=== PATIENT | male | born 1955 | race Caucasian/White ===

== ENCOUNTER 2017-09-08 12:47 | Emergency (ER) | payer OTHER, SELFPAY ==
[2017-09-08 13:02] VITALS: BP 142/75; PULSE 88; RESP 15; TEMP 36.6; O2SAT 96; BMI 24.4
--- NOTE | 2017-09-08 13:52 | DI.RAD.S_ITS ---
PROCEDURE: XR CHEST 1V INDICATIONS: chest pain TECHNIQUE: One view of the chest was acquired. COMPARISON: [facility], , CHEST 2 VIEW, 10/20/2015, 17:41. FINDINGS: Surgical changes and devices: None. Lungs and pleura: No pleural effusions or pneumothorax. Lungs are clear. Mediastinum: Mediastinal contours appear normal. Heart size is normal. Bones and chest wall: No suspicious bony lesions. Overlying soft tissues appear unremarkable. IMPRESSION: No acute pulmonary process. Dictated by: Beth Obando M.D. on 09/08/2017 at 14:55 Approved by: Beth Obando M.D. on 09/08/2017 at 14:55
[2017-09-08 14:02] VITALS: BP 123/76; PULSE 72; RESP 16; O2SAT 96
[2017-09-08 14:06] LABS: Add Manual Diff / Slide Review NO; Basophils Percent Auto 0.4 % (0-2); Eosinophils Percent Auto 2.3 % (2-4); Hematocrit 46.7 % (41-53); Hemoglobin 16.8 g/dL (13.5-17.5); Lymphocytes Percent Auto 31.7 % (25-40); Mean Corpuscular HGB Conc 35.9 % (30-36); Mean Corpuscular Hemoglobin 32.6 PG (26-34); Mean Corpuscular Volume 90.8 fL (80-100); Monocytes Percent Auto 11.5 % (3-14); Neutrophils Absolute Auto 2900 /uL (3000-5900); Neutrophils Percent Auto 54.1 % (50-75); Platelet Count 216 X10^3/uL (150-400); Red Blood Cell Count 5.15 X10^6/uL (4.5-5.9); Red Cell Distribution Width 12.8 % (11.6-14.8); White Blood Cell Count 5.4 X10^3/uL (4.5-11.0)
[2017-09-08 14:15] LABS: Alanine Aminotransferase 33 IU/L (21-72); Albumin 4.3 g/dL (3.5-5.0); Albumin Globulin Ratio 1.5 (1.0-2.8); Alkaline Phosphatase 58 U/L (38-126); Aspartate Aminotransferase 21 IU/L (17-59); BUN Creatinine Ratio 16.7 (6-22); Bilirubin Total 1.1 mg/dL (0.2-1.3); Blood Urea Nitrogen 15 mg/dL (9-20); Calcium 9.4 mg/dL (8.4-10.2); Carbon Dioxide 27 mmol/L (22-32); Chloride 102 mmol/L (98-107); Creatine Kinase 70 U/L (55-170); Estimated Glomerular Filt Rate > 60.0 mL/min (>60); Globulin 2.9 g/dL (1.7-4.1); Glucose 102 mg/dL (80-110); HEMOLYSIS < 15 (0-50); INR 1.1 (0.9-1.3); Lipase 75 U/L (23-300); Prothrombin Time 11.9 SECONDS (10.1-12.7); Sodium 140 mmol/L (137-145); Total Protein 7.2 g/dL (6.3-8.2)
[2017-09-08 14:18] LABS: PTT Partial Thromboplastin Tim 32 SECONDS (26.4-36.2)
[2017-09-08 14:27] LABS: Troponin I < 0.012 ng/mL (0.01-0.034)
--- NOTE | 2017-09-08 14:41 | ED_ITS ---
HPI - Chest Pain <Franny Adair PA-C - Last Filed: 09/08/17 21:38> General Chief Complaint: Chest Pain Stated Complaint: STABBING PAIN IN CHEST,LEFT ARM PAIN NAUSEOUS Time Seen by Provider: 09/08/17 14:39 Source: patient Mode of arrival: ambulatory Limitations: no limitations History of Present Illness HPI narrative: This 61-year-old gentleman comes in due to 3 week history of intermittent chest pain which he describes as ?sharp?. He states this has been on and off, however awoke this morning and his left arm has been painful along with the chest pain, so came in due to this. He states that this felt like a squeezing sensation especially in his forearm, and he has felt a little bit foggy in his head though has been going about his usual activities without difficulty. He denies any focal weakness, denies any difficulty with speech or swallowing. His has not noted any change. He states historically, this chest pain has happened at rest, no exertional pain. He denies any dyspnea or wheeze. He states he has had a slight ongoing cough. He has not had any fever. He has not had any pain or swelling in his lower extremities. He denies any nausea or vomiting. He states that pain improves with belching. Related Data Previous Rx's Medication Instructions Recorded celecoxib [Celebrex] 100 mg PO BID #180 cap 05/11/17 gabapentin [Neurontin] 300 mg PO HS #90 cap 05/11/17 lisinopril 10 mg PO Q DAY #90 tab 05/11/17 simvastatin 20 mg PO HS #90 tab 05/11/17 Allergies Allergy/AdvReac Type Severity Reaction Status Date / Time aspirin [ASPIRIN] Allergy Unknown Verified 09/08/17 13:02 Review of Systems <Franny Adair PA-C - Last Filed: 09/08/17 21:38> Review of Systems All systems reviewed & are unremarkable except as noted in HPI and below PFSH <Franny Adair PA-C - Last Filed: 09/08/17 21:38> Comment: Smokes cigars and chews tobacco, no ETOH or street drug Exam <Franny Adair PA-C - Last Filed: 09/08/17 21:38> Narrative Exam Narrative: GENERAL APPEARANCE: Patient sitting comfortably, in no distress. HEENT: PERRLA, EOMI, NORMAL OROPHARYNX NECK/THYROID: Neck supple, no JVD. LUNGS: Clear to auscultation bilaterally. HEART: Regular rate and rhythm without murmur, normal S1, S2, no S3 or S4. CHEST: He is exquisitely tender over the left anterolateral rib border at the 3rd to 5th rib levels. No sternal tenderness or rib tenderness elsewhere ABDOMEN: Soft, NT, ND, + BS x 4 quadrants, +bowel sounds x4 quadrants EXTREMITIES: No cyanosis, no edema. No calf tenderness NEUROLOGIC: Alert and oriented, normal speech and coordination. DERMATOLOGIC: No exanthem MS: Moderate tenderness over the left AC joint. No tenderness over the left forearm. He is tender with attempts at full external and internal rotation of the shoulder with somewhat decreased range of motion. Initial Vital Signs Initial Vital Signs: Vital Signs Temperature 97.8 F 09/08/17 13:02 Pulse Rate 88 09/08/17 13:02 Respiratory Rate 15 09/08/17 13:02 Blood Pressure 142/75 H 09/08/17 13:02 Pulse Oximetry 96 09/08/17 13:02 <Adilson Richardson MD - Last Filed: 09/10/17 08:37> Initial Vital Signs Initial Vital Signs: Vital Signs Temperature 97.8 F 09/08/17 13:02 Pulse Rate 88 09/08/17 13:02 Respiratory Rate 15 09/08/17 13:02 Blood Pressure 142/75 H 09/08/17 13:02 Pulse Oximetry 96 09/08/17 13:02 Course <Franny Adair PA-C - Last Filed: 09/08/17 21:38> Additional Information: Patient was symptomatic while here and has essentially normal workup. We were able to elicit tenderness on palpation, and discussed that this may be associated with pectoral and rib muscle strain as well as the tenderness and movement difficulties he is having with the left shoulder. He did also have improvement in his belching with the GI cocktail. He is already on NSAID for arthritis and will continue this. Advised this appears to be low risk chest pain at this point and it is reasonable to discharge home however advised return if any new or acutely worsening symptoms and he is agreeable. Also advised follow up with his PCP to talk about whether stress testing may be indicated given his risk factors. Orders Ordered: Discontinued Medications Al Hydrox/Mg Hydrox/Simethicone 20 ml/ Lidocaine HCl 15 ml 0 ml PO NOW ONE Stop: 09/08/17 15:12 Last Admin: 09/08/17 15:19 Dose: 30 ml Lidocaine (Lidoderm) 1 each TOP NOW ONE Stop: 09/08/17 15:12 Last Admin: 09/08/17 15:17 Dose: 1 each Vital Signs - 8 hr 09/08/17 14:02 09/08/17 15:04 Pulse Rate 72 72 Respiratory Rate 16 24 Blood Pressure [Right Arm] 123/76 H 107/72 Pulse Oximetry 96 98 <Adilson Richardson MD - Last Filed: 09/10/17 08:37> Orders Ordered: Discontinued Medications Al Hydrox/Mg Hydrox/Simethicone 20 ml/ Lidocaine HCl 15 ml 0 ml PO NOW ONE Stop: 09/08/17 15:12 Last Admin: 09/08/17 15:19 Dose: 30 ml Lidocaine (Lidoderm) 1 each TOP NOW ONE Stop: 09/08/17 15:12 Last Admin: 09/08/17 15:17 Dose: 1 each Vital Signs - 8 hr 09/08/17 14:02 09/08/17 15:04 Pulse Rate 72 72 Respiratory Rate 16 24 Blood Pressure [Right Arm] 123/76 H 107/72 Pulse Oximetry 96 98 MDM - Chest Pain <Franny Adair PA-C - Last Filed: 09/08/17 21:38> Lab Data Attestation: I reviewed the patient's lab results. Result diagrams: 09/08/17 13:55 09/08/17 13:55 Lab Results 09/08/17 09/08/17 09/08/17 Range/Units 13:55 13:55 13:55 WBC 5.4 (4.5-11.0) X10^3/uL RBC 5.15 (4.5-5.9) X10^6/uL Hgb 16.8 (13.5-17.5) g/dL Hct 46.7 (41-53) % MCV 90.8 (80-100) fL MCH 32.6 (26-34) PG MCHC 35.9 (30-36) % RDW 12.8 (11.6-14.8) % Plt Count 216 (150-400) X10^3/uL Neut % (Auto) 54.1 (50-75) % Lymph % (Auto) 31.7 (25-40) % [place] % (Auto) 11.5 (3-14) % Eos % (Auto) 2.3 (2-4) % Baso % (Auto) 0.4 (0-2) % Neut # (Auto) 2900 L (1405-3666) /uL PT 11.9 (10.1-12.7) SECONDS INR 1.1 (0.9-1.3) APTT 32 (26.4-36.2) SECONDS Sodium 140 (137-145) mmol/L Potassium 4.0 (3.4-5.1) mmol/L Chloride 102 (98-107) mmol/L Carbon Dioxide 27 (22-32) mmol/L BUN 15 (9-20) mg/dL Creatinine 0.90 (0.66-1.25) mg/dL Estimated GFR > 60.0 (>60) mL/min BUN/Creatinine Ratio 16.7 (6-22) Glucose 102 (80-110) mg/dL Calcium 9.4 (8.4-10.2) mg/dL Total Bilirubin 1.1 (0.2-1.3) mg/dL AST 21 (17-59) IU/L ALT 33 (21-72) IU/L Alkaline Phosphatase 58 (38-126) U/L Total Creatine Kinase 70 (55-170) U/L Troponin I < 0.012 (0.01-0.034) ng/mL Total Protein 7.2 (6.3-8.2) g/dL Albumin 4.3 (3.5-5.0) g/dL Globulin 2.9 (1.7-4.1) g/dL Albumin/Globulin Ratio 1.5 (1.0-2.8) Lipase 75 (23-300) U/L Imaging Data Chest x-ray: Radiologist's impression: [address] [address] XRay Report Signed Patient: Oscar Maloney MR#: [id number] : 1955 Acct:[id number] Age/Sex: 61 / M Date of Service: 09/08/17 Loc: ED Accession Number: [id number] Procedure: XR chest 1V Ordering Provider: Adilson Richardson M.D. PROCEDURE: XR CHEST 1V INDICATIONS: chest pain TECHNIQUE: One view of the chest was acquired. COMPARISON: [facility], CHEST 2 VIEW, 10/20/2015, 17:41. FINDINGS: Surgical changes and devices: None. Lungs and pleura: No pleural effusions or pneumothorax. Lungs are clear. Mediastinum: Mediastinal contours appear normal. Heart size is normal. Bones and chest wall: No suspicious bony lesions. Overlying soft tissues appear unremarkable. IMPRESSION: No acute pulmonary process. Dictated by: Beth Obando M.D. on 09/08/2017 at 14:55 Approved by: Beth Obando M.D. on 09/08/2017 at 14:55 ECG Data Attestation: I personally reviewed and interpreted this ECG as follows: (Sinus rhythm with rate 77, normal axis) Core Measures AMI core measures followed: Yes <Adilson Richardson MD - Last Filed: 09/10/17 08:37> Lab Data Lab Results 09/08/17 09/08/17 09/08/17 Range/Units 13:55 13:55 13:55 WBC 5.4 (4.5-11.0) X10^3/uL RBC 5.15 (4.5-5.9) X10^6/uL Hgb 16.8 (13.5-17.5) g/dL Hct 46.7 (41-53) % MCV 90.8 (80-100) fL MCH 32.6 (26-34) PG MCHC 35.9 (30-36) % RDW 12.8 (11.6-14.8) % Plt Count 216 (150-400) X10^3/uL Neut % (Auto) 54.1 (50-75) % Lymph % (Auto) 31.7 (25-40) % [place] % (Auto) 11.5 (3-14) % Eos % (Auto) 2.3 (2-4) % Baso % (Auto) 0.4 (0-2) % Neut # (Auto) 2900 L (7686-6602) /uL PT 11.9 (10.1-12.7) SECONDS INR 1.1 (0.9-1.3) APTT 32 (26.4-36.2) SECONDS Sodium 140 (137-145) mmol/L Potassium 4.0 (3.4-5.1) mmol/L Chloride 102 (98-107) mmol/L Carbon Dioxide 27 (22-32) mmol/L BUN 15 (9-20) mg/dL Creatinine 0.90 (0.66-1.25) mg/dL Estimated GFR > 60.0 (>60) mL/min BUN/Creatinine Ratio 16.7 (6-22) Glucose 102 (80-110) mg/dL Calcium 9.4 (8.4-10.2) mg/dL Total Bilirubin 1.1 (0.2-1.3) mg/dL AST 21 (17-59) IU/L ALT 33 (21-72) IU/L Alkaline Phosphatase 58 (38-126) U/L Total Creatine Kinase 70 (55-170) U/L Troponin I < 0.012 (0.01-0.034) ng/mL Total Protein 7.2 (6.3-8.2) g/dL Albumin 4.3 (3.5-5.0) g/dL Globulin 2.9 (1.7-4.1) g/dL Albumin/Globulin Ratio 1.5 (1.0-2.8) Lipase 75 (23-300) U/L Discharge Plan Departure Patient Disposition: Home, Self-Care Clinical Impression: Atypical chest pain, Anterior shoulder pain Discharge Date/Time: 09/08/17 15:56 Interventions: ED Discharge Assessment Last Done: 09/08/17 15:56 Instructions: DI for Atypical Chest Pain Activity Restrictions/Additional Instructions: As we discussed, you should return if you have any acutely worsening symptoms, or new symptoms such as difficulty breathing. Your testing today did not show any acute findings as far as your heart, and on examination your pain seems more typical of a musculoskeletal problem given the tenderness and muscle pain when I push on your rib area as well as the front part of your shoulder. You can use your usual arthritis medication, add Tylenol as needed. You may also wish to try 4% lmir-kfj-qzhkzte lidocaine patches if you find 1 that we put on your elbow helpful. You may also wish to use a liquid ewya-rlu-rcztfqi antacid for your belching and gas symptoms, or you can try bonv-xlk-aqvbjrs simethicone. Please follow-up with your PCP next week to discuss whether to do further testing since you do have some risk factors for heart disease Prescriptions: No Action simvastatin 20 MG tablet 20 mg PO HS Qty: 90 RF: 1 lisinopril 10 MG tablet 10 mg PO Q DAY Qty: 90 RF: 1 gabapentin [Neurontin] 300 MG capsule 300 mg PO HS Qty: 90 RF: 3 celecoxib [Celebrex] 100 MG capsule 100 mg PO BID Qty: 180 RF: 3 Referrals: Rosamaria Grayson DO [Primary Care Provider] - <Adilson Richardson MD - Last Filed: 09/10/17 08:37> Sign Out Provider Sign Out Attestation: The PA/ACCOUNTING MANAGER CONTROLLER functioned independently for the care of this pt, I was available, but not asked to participate in care. I am unable to determine appropriateness of management without personally examining the pt.
[2017-09-08 15:04] VITALS: BP 107/72; PULSE 72; RESP 24; O2SAT 98
[2017-09-08] MEDS: LIDOCAINE PATCH 1 EACH ADH..PATCH TOP (15:17)
[2017-09-08] MEDS: MAG HYDROX/ALUMINUM/SIMETH SUS 20 ML, LIDOCAINE VISCOUS 2% 15 ML PO (15:19)
== END 2017-09-08 15:56 | disposition home or self-care (01) ==
PROVIDERS: Emergency Medicine; Emergency Provider Internal Medicine; Family Provider Family Medicine; PCP Family Medicine
DX: R07.89 Other chest pain (principal); M25.512 Pain in left shoulder
CPT/HCPCS: 36415; 36591; 71045; 80053; 82550; 82553; 83690; 84484; 85025; 85610; 85730; 93005; 93041; 99283; 99285

== ENCOUNTER → 2017-12-07 12:06 | Outpatient (CLI) | payer OTHER, SELFPAY ==
[2017-12-07 14:05] LABS: Cholesterol 145 mg/dL (140-199); HDL Cholesterol 51 mg/dL (40-60); LDL Cholesterol Calculated 75 mg/dL (<100); Triglycerides 97 mg/dL (35-150)
[2017-12-07 14:34] LABS: Thyroid Stimulating Hormone 1.85 uIU/mL (0.47-4.68)
== END ==
PROVIDERS: Family Provider Family Medicine; PCP Family Medicine; Visit Provider Family Medicine
DX: Z13.220 Encounter for screening for lipoid disorders (principal); Z13.29 Encounter for screening for other suspected endocrine disorder
CPT/HCPCS: 36415; 80061; 84443

== ENCOUNTER → 2018-01-23 17:17 | Outpatient (CLI) | payer OTHER, SELFPAY ==
[2018-01-23 18:10] LABS: Appearance Urine UA CLEAR; Bilirubin Urine UA NEGATIVE (NEGATIVE); Color Urine UA YELLOW; Glucose Urine UA NEGATIVE (Normal); Ketones Urine UA NEGATIVE (NEGATIVE); Leukocyte Esterase Urine UA NEGATIVE (NEGATIVE); Nitrite Urine UA NEGATIVE (Negative); Occult Blood Urine UA NEGATIVE (Negative); Protein Urine UA NEGATIVE (Negative); pH Urine UA 6.5 (4.5-8.0)
[2018-01-23 18:32] LABS: Add Manual Diff / Slide Review NO; Basophils Percent Auto 0.5 % (0-2); Eosinophils Percent Auto 1.9 % (2-4); Hemoglobin 17.2 g/dL (13.5-17.5); Lymphocytes Percent Auto 34.1 % (25-40); Mean Corpuscular HGB Conc 34.3 % (30-36); Mean Corpuscular Hemoglobin 31.1 PG (26-34); Mean Corpuscular Volume 90.6 fL (80-100); Monocytes Percent Auto 8.2 % (3-14); Neutrophils Absolute Auto 3600 /uL (3000-5900); Neutrophils Percent Auto 55.3 % (50-75); Platelet Count 226 X10^3/uL (150-400); Red Blood Cell Count 5.52 X10^6/uL (4.5-5.9); Red Cell Distribution Width 13.1 % (11.6-14.8); White Blood Cell Count 6.5 X10^3/uL (4.5-11.0)
[2018-01-23 18:56] LABS: Alanine Aminotransferase 37 IU/L (21-72); Albumin 4.6 g/dL (3.5-5.0); Albumin Globulin Ratio 1.5 (1.0-2.8); Alkaline Phosphatase 67 U/L (38-126); Amylase 39 U/L (30-110); Aspartate Aminotransferase 22 IU/L (17-59); BUN Creatinine Ratio 14.4 (6-22); Bilirubin Total 0.6 mg/dL (0.2-1.3); Blood Urea Nitrogen 13 mg/dL (9-20); Calcium 9.5 mg/dL (8.4-10.2); Carbon Dioxide 29 mmol/L (22-32); Chloride 102 mmol/L (98-107); Estimated Glomerular Filt Rate > 60.0 mL/min (>60); Glucose 92 mg/dL (80-110); HEMOLYSIS < 15 (0-50); Lipase 83 U/L (23-300); Potassium 4.1 mmol/L (3.4-5.1); Sodium 144 mmol/L (137-145); Total Protein 7.6 g/dL (6.3-8.2)
== END ==
PROVIDERS: Family Provider Family Medicine; PCP Family Medicine; Visit Provider Family Medicine
DX: R10.9 Unspecified abdominal pain (principal)
CPT/HCPCS: 36415; 80053; 81003; 82150; 83690; 85025

== ENCOUNTER → 2018-01-29 12:46 | Outpatient (CLI) | payer OTHER, SELFPAY ==
--- NOTE | 2018-01-29 12:53 | DI.CT.S_ITS ---
PROCEDURE: CT ABDOMEN PELVIS W CON INDICATIONS: left lower quadrant pain TECHNIQUE: After the administration of oral and intravenous contrast, 5 mm thick sections acquired from the diaphragms to the symphysis. 5 mm thick coronal and sagittal reformats were performed. For radiation dose reduction, the following was used: automated exposure control, adjustment of mA and/or kV according to patient size. COMPARISON: [facility], CT, KIDNEY/ URETER/BLADDER, 08/28/2013, 10:17. FINDINGS: Image quality: Excellent. ABDOMEN: Lung bases: Lung bases are clear. Heart size is normal. Solid organs: Liver is normal in size and enhancement. Gallbladder is surgically absent. Biliary system is non-dilated. Pancreas enhances normally. Spleen is normal in size and enhancement. No adrenal nodules. Kidneys are normal in size and enhancement, without hydronephrosis. Peritoneum and bowel: There is mild thickening of the distal esophagus and gastroesophageal junction. Stomach, small bowel, and colon loops are normal in caliber and wall thickness. No free fluid or air. Normal appendix. Nodes and vessels: No retroperitoneal or mesenteric adenopathy. Aorta and inferior vena cava are normal in caliber. Miscellaneous: No ventral hernias. PELVIS: Genitourinary: Bladder wall thickness is normal. Miscellaneous: No inguinal hernias or adenopathy. Bones: No suspicious bony lesions. No vertebral body compression fractures. IMPRESSION: 1. Mild thickening of the distal esophagus; further assessment with endoscopy is recommended to assess for neoplasm. 2. No explanation for left lower quadrant pain. 3. Normal appendix. Dictated by: Ying Hughes M.D. on 01/29/2018 at 16:53 Approved by: Ying Hughes M.D. on 01/29/2018 at 16:55
== END ==
PROVIDERS: PCP Family Medicine; Visit Provider Family Medicine
DX: R10.12 Left upper quadrant pain (principal); R10.30 Lower abdominal pain, unspecified
CPT/HCPCS: 74177; Q9967

== ENCOUNTER → 2018-02-14 15:39 | Outpatient (CLI) | payer OTHER, SELFPAY ==
[2018-02-14 16:18] LABS: Add Manual Diff / Slide Review NO; Basophils Percent Auto 0.4 % (0-2); Eosinophils Percent Auto 1.8 % (2-4); Hematocrit 46.3 % (41-53); Hemoglobin 16.6 g/dL (13.5-17.5); Lymphocytes Percent Auto 37.4 % (25-40); Mean Corpuscular HGB Conc 35.9 % (30-36); Mean Corpuscular Hemoglobin 31.9 PG (26-34); Mean Corpuscular Volume 88.8 fL (80-100); Monocytes Percent Auto 10.3 % (3-14); Neutrophils Absolute Auto 2600 /uL (1500-7000); Neutrophils Percent Auto 50.1 % (50-75); Platelet Count 227 X10^3/uL (150-400); Red Blood Cell Count 5.21 X10^6/uL (4.5-5.9); Red Cell Distribution Width 12.9 % (11.6-14.8); White Blood Cell Count 5.3 X10^3/uL (4.5-11.0)
[2018-02-14 16:20] LABS: Appearance Urine UA CLEAR; Bilirubin Urine UA NEGATIVE (NEGATIVE); Color Urine UA YELLOW; Glucose Urine UA NEGATIVE (Normal); Ketones Urine UA NEGATIVE (NEGATIVE); Leukocyte Esterase Urine UA NEGATIVE (NEGATIVE); Nitrite Urine UA NEGATIVE (Negative); Occult Blood Urine UA NEGATIVE (Negative); Protein Urine UA NEGATIVE (Negative); Specific Gravity Urine UA >=1.030 (1.000-1.035); Urobilinogen Urine UA 0.2 E.U./dL (0.2)
[2018-02-14 16:40] LABS: Alanine Aminotransferase 39 IU/L (21-72); Albumin 4.4 g/dL (3.5-5.0); Albumin Globulin Ratio 1.6 (1.0-2.8); Alkaline Phosphatase 64 U/L (38-126); Aspartate Aminotransferase 25 IU/L (17-59); BUN Creatinine Ratio 17.8 (6-22); Bilirubin Total 0.9 mg/dL (0.2-1.3); Blood Urea Nitrogen 16 mg/dL (9-20); Calcium 9.1 mg/dL (8.4-10.2); Carbon Dioxide 23 mmol/L (22-32); Chloride 104 mmol/L (98-107); Cholesterol 158 mg/dL (140-199); Estimated Glomerular Filt Rate > 60.0 mL/min (>60); Globulin 2.8 g/dL (1.7-4.1); Glucose 99 mg/dL (80-110); HDL Cholesterol 46 mg/dL (40-60); HEMOLYSIS < 15 (0-50); LDL Cholesterol Calculated 98 mg/dL (<100); Potassium 4.1 mmol/L (3.4-5.1); Sodium 141 mmol/L (137-145); Total Protein 7.2 g/dL (6.3-8.2); Triglycerides 68 mg/dL (35-150)
[2018-02-14 17:09] LABS: Thyroid Stimulating Hormone 1.24 uIU/mL (0.47-4.68)
== END ==
PROVIDERS: PCP Family Medicine; Visit Provider Family Medicine
DX: E78.5 Hyperlipidemia, unspecified (principal); I10 Essential (primary) hypertension; Z51.81 Encounter for therapeutic drug level monitoring
CPT/HCPCS: 36415; 80053; 80061; 81003; 84153; 84443; 85025

== ENCOUNTER → 2018-02-18 09:41 | Outpatient (CLI) | payer OTHER, SELFPAY ==
--- NOTE | 2018-02-18 09:43 | DI.CT.S_ITS ---
PROCEDURE: CT CHEST W CON INDICATIONS: Chest pain, Left rib pain TECHNIQUE: After the administration of intravenous contrast, 5 mm thick sections acquired from the pulmonary apices to the posterior costophrenic angles. 7 mm thick coronal and sagittal MIP reformats were acquired. For radiation dose reduction, the following was used: automated exposure control, adjustment of mA and/or kV according to patient size. COMPARISON: None. FINDINGS: Image quality: Excellent. Lungs and pleura: No acute air space opacities. Mild dependent atelectasis in posterior aspect of bilateral lung sanchez are seen. No pleural effusions or pneumothorax. Central and peripheral airways are patent and normal in caliber. Mediastinum: Heart size is normal. No pericardial effusion. No mediastinal or hilar adenopathy by size criteria. Thoracic aorta and central pulmonary arteries are normal in size. Esophagus is normal in caliber. No hiatal hernia. Bones and chest wall: No suspicious bony lesions. No vertebral body compression fractures. No axillary or supraclavicular adenopathy by size criteria. Right thyroid lobe is slightly enlarged compared to the left side. No discrete thyroid nodule is seen. Abdomen: Visualized upper abdominal solid organs appear normal. Upper abdominal bowel loops are normal in caliber. Gallbladder is surgically absent. IMPRESSION: 1. Mild dependent atelectasis in bilateral lung sanchez. Bilateral lungs otherwise clear. 2. No gross acute rib fracture or suspicious rib lesion. 3. No mediastinal or hilar adenopathy. Dictated by: Chriss Daniel M.D. on 02/18/2018 at 12:25 Approved by: Chriss Daniel M.D. on 02/18/2018 at 12:33
== END ==
PROVIDERS: PCP Family Medicine; Visit Provider Family Medicine
DX: R07.9 Chest pain, unspecified (principal); J98.11 Atelectasis
CPT/HCPCS: 71260

== ENCOUNTER → 2018-02-26 12:50 | Outpatient (CLI) | payer OTHER, SELFPAY ==
--- NOTE | 2018-02-26 12:52 | DI.MRI.S_ITS ---
PROCEDURE: MR ABDOMEN WO/W CON INDICATIONS: Mass left upper rectus muscle region of the abdomen TECHNIQUE: Axial 2-D FLASH in- and jit-an-lydel, axial breath-hold T2 FSE, axial STIR FSE. Optional contrast may be given, followed by axial 2-D FLASH with fat saturation acquired over the lesion of concern. COMPARISON: [facility], CT, KIDNEY/ URETER/BLADDER, 08/28/2013, 10:17. [facility], CT, CT CHEST W CON, 02/18/2018, 9:38. [facility], CT, CT ABDOMEN PELVIS W CON, 01/29/2018, 13:32. FINDINGS: Image quality: Excellent. Region of interest: A 1.6 cm in diameter fatty mass is present within the subcutaneous tissues in the area palpated by the patient. No enhancement. There is mild mass effect on the underlying rectus musculature. Visualized portions of the kidneys, spleen, bowel, stomach, and liver are unremarkable. There is a moderate amount of epicardial fat. Bones: Nearby osseous structures demonstrate normal overall marrow signal. IMPRESSION: 1. Small anterior subcutaneous fatty mass palpated by the patient most consistent with a small lipoma. Please note, although liposarcomas exceedingly rare, if there is rapid growth or pain associated with this mass, further characterization may be warranted to exclude neoplasm. Dictated by: Aida Todd M.D. on 02/26/2018 at 16:03 Approved by: Aida Todd M.D. on 02/26/2018 at 16:09
== END ==
PROVIDERS: PCP Family Medicine; Visit Provider Specialist
DX: R19.02 Left upper quadrant abdominal swelling, mass and lump (principal)
CPT/HCPCS: 74183; A9579

== ENCOUNTER → 2018-07-17 15:39 | Outpatient (CLI) | payer OTHER, SELFPAY ==
[2018-07-17 16:31] LABS: Alanine Aminotransferase 27 IU/L (21-72); Albumin 4.2 g/dL (3.5-5.0); Albumin Globulin Ratio 1.6 (1.0-2.8); Alkaline Phosphatase 72 U/L (38-126); Aspartate Aminotransferase 22 IU/L (17-59); BUN Creatinine Ratio 15.6 (6-22); Bilirubin Total 0.9 mg/dL (0.2-1.3); Blood Urea Nitrogen 14 mg/dL (9-20); Calcium 8.9 mg/dL (8.4-10.2); Carbon Dioxide 27 mmol/L (22-32); Chloride 103 mmol/L (98-107); Cholesterol 137 mg/dL (140-199); Estimated Glomerular Filt Rate > 60.0 mL/min (>60); Globulin 2.7 g/dL (1.7-4.1); Glucose 97 mg/dL (80-110); HDL Cholesterol 43 mg/dL (40-60); HEMOLYSIS 17 (0-50); LDL Cholesterol Calculated 76 mg/dL (<100); Potassium 4.1 mmol/L (3.4-5.1); Sodium 140 mmol/L (137-145); Total Protein 6.9 g/dL (6.3-8.2); Triglycerides 88 mg/dL (35-150)
== END ==
PROVIDERS: PCP Family Medicine; Visit Provider Family Medicine
DX: E78.5 Hyperlipidemia, unspecified (principal); I10 Essential (primary) hypertension
CPT/HCPCS: 36415; 80053; 80061

== ENCOUNTER → 2018-08-15 07:39 | Outpatient (CLI) | payer OTHER, SELFPAY ==
--- NOTE | 2018-08-15 07:41 | DI.MRI.S_ITS ---
PROCEDURE: MR LUMBAR SPINE WO CON INDICATIONS: Lumbar Radiculopaty, DDD TECHNIQUE: Noncontrast sagittal T1 spin echo and T2 fast echo, sagittal STIR, axial T1 and T2 fast spin echo through the lumbar spine. In cases with scoliosis, additional coronal T2 fast spin echo may be performed. COMPARISON: [facility], , L-SPINE WITHOUT CONTRAST, 11/10/2014, 19:38. FINDINGS: Image quality: Excellent. Alignment and Curvature: There is trace retrolisthesis of L5 on S1. Bone Marrow: Marrow is of normal overall signal. No acute vertebral body compression fractures. Schmorl's nodes are noted along the inferior endplates of L1, L2, L3, L4 and L5, as well as superior endplates of L4 read, L4. Schmorl's nodes with associated reactive marrow changes noted along the inferior endplate of L2 and superior endplate of L3, as well as to a lesser degree the inferior endplate of L3.. Spinal Cord: Conus medullaris terminates at the L1 level. Visualized cord demonstrates normal signal and size. Paraspinous Soft Tissues: No paravertebral masses. Discs: Moderate to severe desiccation is present throughout the lumbar spine. L1-L2: Minimal disc bulge without spinal stenosis. No foraminal narrowing. Mild facet and ligamentum flavum hypertrophy as well as minimal epidural lipomatosis. Minimal interval progression. L2-L3: Mild disc bulge without spinal stenosis. Moderate right and minimal left foraminal narrowing with facet and ligamentum flavum hypertrophy. Minimal epidural lipomatosis. Minimal interval progression. L3-L4: Mild disc bulge without spinal stenosis. Mild left and mild to moderate right foraminal narrowing with facet and ligamentum flavum hypertrophy. Minimal epidural lipomatosis. No interval change. L4-L5: Mild disc bulge without spinal stenosis. Minimal bilateral foraminal narrowing without interval progression. Facet and ligamentum flavum hypertrophy are noted. Stable interval appearance. L5-S1: Minimal disc bulge without spinal stenosis. No foraminal narrowing. Facet hypertrophy is present. No interval change. IMPRESSION: 1. Multilevel degenerative changes with areas of interval progression as noted above. 2. Multilevel foraminal narrowing most prominent at L2-3 L3-4 secondary to facet/ligamentum flavum arthropathy. 3. No spinal stenosis. Dictated by: Beth Obando M.D. on 08/15/2018 at 11:54 Approved by: Beth Obando M.D. on 08/15/2018 at 12:04
== END ==
PROVIDERS: PCP Family Medicine; Referring Provider Physical Medicine & Rehabilitation; Visit Provider Family Medicine
DX: M51.16 Intervertebral disc disorders with radiculopathy, lumbar region (principal); M47.26 Other spondylosis with radiculopathy, lumbar region; M48.061 Spinal stenosis, lumbar region without neurogenic claudication
CPT/HCPCS: 72148

== ENCOUNTER 2018-09-10 07:08 | Outpatient (CLI) | payer OTHER, SELFPAY ==
[2018-09-10] VITALS (8 sets, daily range): BP systolic 115–145; BP diastolic 58–83; PULSE 63–70; RESP 16–20; TEMP 36.5; O2SAT 95–98
--- NOTE | 2018-09-10 07:10 | DI.RAD.S_ITS ---
PROCEDURE: PAIN L/S TRANSFORAMINAL INJECT INDICATIONS: SPONDYLOSIS FINDINGS: Fluoroscopic spot filming was performed to verify placement of spinal needles at the L3-L4. level(s), as labeled on the films. Appropriate location(s) of the needle tip(s) was confirmed by injection of iodinated contrast. IMPRESSION: Fluoroscopy support for pain management. Dictated by: Abbey Santos M.D. on 09/10/2018 at 10:35 Approved by: Abbey Santos M.D. on 09/10/2018 at 10:36
[2018-09-10] MEDS: fentaNYL 100 MCG/2 ML INJ 50 MCG IV (08:03)
[2018-09-10] MEDS: MIDAZOLAM 5 MG/5 ML VIAL IV (08:03)
[2018-09-10] MEDS: DEXAMETHASONE 10 MG/ML VIAL 20 MG INJ (08:08)
[2018-09-10] MEDS: BETAMETHASONE 30 MG/5 ML MDV 6 MG INJ (08:08)
[2018-09-10] MEDS: IOPAMIDOL 15 ML VIAL 3 ML INJ (08:08)
[2018-09-10] MEDS: BUPIVACAINE 0.25% (PF) VIAL 2 ML INJ (08:08)
--- NOTE | 2018-09-10 08:12 | PC.NURSE ---
ASSISTING PT OFF TABLE AND TRANSPORTING TO POST PROC AREA IN STABLE CONDITION.
--- NOTE | 2018-09-10 08:20 | P.PCN_ITS ---
Procedures Date/Time Date of procedure: 09/10/18 Time of procedure: 08:18 General Procedure description: PREOP DIAGNOSIS 1. FORMAINAL STENOSIS WITH LE SYMPTOMS POST OP DIAGNOSIS 1. FORMAINAL STENOSIS WITH LE SYMPTOMS PROCEDURES 1. FLUOROSCOPICALLY GUIDED CONTRAST CONTROLLED TRANSFORAMINAL EPIDURAL STEROID INJECTION - LEFT L3/4 PHYSICIAN: Sang Corral DO INDICATIONS: Oscar is referred by Dr. Grayson for treatment of Foraminal Stenosis with Left LE Symptoms FINDINGS Foraminal Nerve Root Compression secondary to disc disease and facet hypertrophy DESCRIPTION OF PROCEDURE: Following review of allergy and review of potential side effects and complications, including, but not necessarily limited to, infection, allergic reaction, local tissue breakdown, stroke, temporary or permanent nerve injury, paralysis, and possible , the patient indicated that the patient understood and agreed to proceed. An informed consent document was signed by the patient, witnessed by a nurse, and placed in the patient's chart. Additionally, other treatment options including medications, modalities, and physical therapy were reviewed with the patient. After review of previous anaesthesic history and IV conscious sedation the pa tient was deemed safe to proceed with todays procedure with IV conscious sedation as ASA class II designation. Safety time-out was performed to confirm patient ID, procedure to be performed and site of procedure. IV sedation was accomplished with a combination of 2mg of Versed and 50mcg of Fentanyl administered by the RN after DO order, titrated to patient comfort during the course of the procedure while the patient remained responsive to all verbal commands In the prone position following sterile prep and drape of the lumbar region, the left L4/5 posterior neuroforamen was identified fluoroscopically. The skin was anesthetized via a 25-gauge 1.5-inch needle with 1% lidocaine solution. At this point, a 25-gauge 3.5-inch spinal needle was atraumatically introduced and advanced under fluoroscopic guidance through the posterior left L4/5 neuroforamen to approximately the anterior aspect of the canal. Depth was confirmed on lateral view. Following negative aspiration, injection of a pproximately 1.5 cc of Isovue 200 under live fluoroscopy in the AP view confirmed excellent flow along the nerve root, into the epidural space without vascular or intrathecal uptake observed Radiological data, including multiple fluoroscopic views of the lumbosacral spine, reveal a spinal needle at the left L4/5 posterior neuroforamen. Subsequent views show flow of contrast material flowing superiorly and inferiorly along the nerve root confirming epidural flow. Subsequently, a test dose of 1.5 cc of 1% lidocaine solution was administered and patient was observed for two minutes for signs or symptoms of complications, including abdominal pain, shortness of breath, bilateral upper or lower extremity weakness, nausea and vomiting, prior to steroid injection. At this point, a total of 3cc or 20mg of dexamethasone and 50mcg of Fentanyl was injected without incident. The procedure tolerated the procedure well without signs or symptoms of complications prior to transfer to the recovery area continued monitoring without incident. The patient was then transferred to the recovery area where they were observed for an appropriate time after the injection. The patient reported a VAS score of 7 prior to the procedure and a post- procedure VAS of 0. Total Fluoroscopy Time: 20.9 seconds Total Conscious Sedation Time: 24min POST OP INSTRUCTIONS The patient was provided a Pain Log to continue to record their response to the target-specific procedure prior to follow-up visit with their referring physician. Additionally, specific post-injection care instructions and a contact number to our office were provided if concerns arise regarding possible complications associated with the procedure are suspected. Sang Corral, Complications: none
--- NOTE | 2018-09-10 08:20 | PC.NURSE ---
Pt returned from procedure awake and alert, able to transfer from w/c to chair with 2 person assist. Resumed monitoring from Kandis MONTERO.
--- NOTE | 2018-09-10 08:51 | PC.NURSE ---
Pt continues with a numb left leg, he's able to extend and flex leg but feels numbness from injection not usual symptoms. Pt will be traveling home to [place] also.
== END 2018-09-10 09:40 ==
LOC: RAD 07:09
PROVIDERS: PCP Family Medicine; Visit Provider Physical Medicine & Rehabilitation
DX: M47.817 Spondylosis without myelopathy or radiculopathy, lumbosacral region (principal); M51.36 Other intervertebral disc degeneration, lumbar region
CPT/HCPCS: 64483; 99152; J0702; J1100; J2250; J3010

== ENCOUNTER 2018-10-17 09:45 | Outpatient (CLI) | payer OTHER, SELFPAY ==
[2018-10-17] VITALS (7 sets, daily range): BP systolic 120–140; BP diastolic 73–85; PULSE 69–74; RESP 16–18; TEMP 36.4; O2SAT 93–99
--- NOTE | 2018-10-17 09:46 | DI.RAD.S_ITS ---
PROCEDURE: PAIN L/S FACET INJ/BLK 1ST ANGELI COMPARISON: None. INDICATIONS: SPONDYLSIS FINDINGS: Fluoroscopic needle location with contrast injection is noted. Exact location of injection is not well-visualized on current image secondary to lack of upper and lower anatomic markers. Recommend correlation with surgical report. IMPRESSION: Fluoroscopic needle placement as above. Dictated by: Beth Obando M.D. on 10/17/2018 at 18:27 Approved by: Beth Obando M.D. on 10/17/2018 at 18:28
[2018-10-17] MEDS: fentaNYL 100 MCG/2 ML INJ 50 MCG IV (10:45)
[2018-10-17] MEDS: MIDAZOLAM 5 MG/5 ML VIAL IV (10:45)
[2018-10-17] MEDS: BETAMETHASONE 30 MG/5 ML MDV 12 MG INJ (10:54)
[2018-10-17] MEDS: LIDOCAINE 1% 20 ML 10 ML INJ (10:54)
[2018-10-17] MEDS: BUPIVACAINE 0.5% (PF) VIAL 2 ML INJ (10:54)
[2018-10-17] MEDS: IOPAMIDOL 15 ML VIAL 3 ML INJ (10:54)
--- NOTE | 2018-10-17 10:59 | PC.NURSE ---
Pt tolerated procedure well. Able to get off table with 2 person minimal assist. Transferred pt via wheelchair to pre procedure room for continued monitoring with Kandis MONTERO.
--- NOTE | 2018-10-17 11:03 | P.PCN_ITS ---
Procedures Date/Time Date of procedure: 10/17/18 Time of procedure: 11:03 General Procedure description: PREOP DIAGNOSIS 1. FACET ARTHROPATHY, 2. AXIAL LBP, 3. MULTILEVEL DDD, POST OP DIAGNOSIS 1. FACET ARTHROPATHY, 2. AXIAL LBP, 3. MULTILEVEL DDD, PROCEDURES 1. FLUORSCOPICALLY GUIDED CONTRAST CONTROLLED FACET JOINT INJECTIONS BILATERAL L2/3, L3/4 SURGEON: Sang Corral, INDICATION Oscar is referred by is referred for treatment of Axial LBP FINDINGS Multilevel Facet Arthropathy with Clinically significant axial LBP DESCRIPTION OF PROCEDURE Fluoroscopically guided, contrast-controlled bilateral L2/3, L3/4 facet joint injections. Following review of allergy and review of potential side effects and complications, including, but not necessarily limited to, infection, allergic reaction, local tissue breakdown, stroke, temporary or permanent nerve injury, paralysis, and possible , the patient indicated that the patient understood and agreed to proceed. An informed consent document was signed by the patient, witnessed by a nurse, and placed in the patient's chart. Additionally, other treatment options including medications, modalities, and physical therapy were reviewed with the patient. After review of previous anaesthesic history and IV conscious sedation the patient was deemed safe to proceed with todays procedure with IV conscious sedation as ASA class II designation. Safety time-out was performed to confirm patient ID, procedure to be performed and site of procedure. IV sedation was accomplished with a combination of 3mg of Versed and 50mcg of Fentanyl was administered by the RN after DO order, titrated to patient comfort during the course of the procedure while the patient remained responsive to all verbal commands In the prone position, following sterile prep and drape of the lumbar region, the posterior aspect of the L2/3, L3/4 facet joints were identified fluoroscopically. The skin was anesthetized via a 25-gauge 1.5-inch needle with 1% lidocaine solution into the corresponding facet joints. At this point, a 22- gauge 3.5-inch spinal needle was atraumatically introduced and advanced under fluoroscopic guidance into the corresponding facet joints. Following negative aspiration, injections of approximately 0.2-cc of Isovue 200 confirmed interarticular placement without vascular uptake. The identical procedure was then performed at the L2/3, L3/4 facet joints on the left. Radiological data, including multiple fluoroscopic views of the lumbosacral spine, reveal a spinal needle at the L2/3, L3/4 facet joints bilaterally. Subsequent views show flow of contrast material both superiorly and inferiorly within the joint space without vascular or intrathecal uptake. At this point, a total of 0.5 cc including a mixture of 0.25cc Marcaine and 0.25cc betamethasone was injected without complication into each of the corresponding facet joints. The patient tolerated the procedure well without signs or symptoms of complications prior to transfer to the recovery area continued monitoring without incident. The patient was then transferred to the recovery area where they were observed for an appropriate period of time after the injection. The patient reported a VAS score of 7 prior to the procedure and a post-procedure VAS of 0. Total Fluoroscopy Time: 20.3 seconds Total Conscious Sedation Time: 24min POST OP INSTRUCTIONS The patient was provided a Pain Log to continue to record their response to the target-specific procedure prior to follow-up visit with their referring physician. Additionally, specific post-injection care instructions and a contact number to our office were provided if concerns arise regarding possible complications associated with the procedure are suspected. Sang Corral DO Complications: none
--- NOTE | 2018-10-17 11:12 | PC.NURSE ---
ACCEPTED CARE OF PT IN POST PROC AREA IN STABLE CONDITION
== END 2018-10-17 11:43 | disposition home or self-care (01) ==
LOC: RAD 09:45
PROVIDERS: PCP Family Medicine; Visit Provider Physical Medicine & Rehabilitation
DX: M47.27 Other spondylosis with radiculopathy, lumbosacral region (principal)
CPT/HCPCS: 64493; 64494; 99152; J0702; J1100; J2250; J3010

== ENCOUNTER → 2019-01-02 13:06 | Outpatient (CLI) | payer OTHER, SELFPAY ==
[2019-01-06 22:36] LABS: Fecal Immunochemical Test NOT DETECTED (NOT DETECTED)
== END ==
PROVIDERS: PCP Family Medicine; Visit Provider Family Medicine
DX: Z12.11 Encounter for screening for malignant neoplasm of colon (principal); Z12.12 Encounter for screening for malignant neoplasm of rectum
CPT/HCPCS: 82274

== ENCOUNTER → 2019-02-03 13:43 | Outpatient (CLI) | payer OTHER, SELFPAY ==
[2019-02-03 15:10] LABS: Alanine Aminotransferase 22 IU/L (<50); Albumin 4.5 g/dL (3.5-5.0); Albumin Globulin Ratio 1.6 (1.0-2.8); Alkaline Phosphatase 59 U/L (38-126); Aspartate Aminotransferase 25 IU/L (17-59); BUN Creatinine Ratio 14.4 (6-22); Blood Urea Nitrogen 13 mg/dL (9-20); Calcium 9.3 mg/dL (8.4-10.2); Carbon Dioxide 30 mmol/L (22-32); Chloride 104 mmol/L (98-107); Cholesterol 161 mg/dL (140-199); Estimated Glomerular Filt Rate > 60.0 mL/min (>60); Globulin 2.9 g/dL (1.7-4.1); Glucose 104 mg/dL (80-110); HDL Cholesterol 45 mg/dL (40-60); HEMOLYSIS < 15 (0-50); LDL Cholesterol Calculated 100 mg/dL (<100); Potassium 3.6 mmol/L (3.4-5.1); Sodium 144 mmol/L (137-145); Total Protein 7.4 g/dL (6.3-8.2); Triglycerides 81 mg/dL (35-150)
[2019-02-03 15:40] LABS: Prostate Specific Antigen Scrn 1.91 ng/mL (0.1-4.0)
[2019-02-03 15:41] LABS: Thyroid Stimulating Hormone 1.61 uIU/mL (0.47-4.68)
[2019-02-03 15:54] LABS: Appearance Urine UA CLEAR; Bilirubin Urine UA NEGATIVE (NEGATIVE); Color Urine UA YELLOW; Glucose Urine UA NEGATIVE (Negative); Ketones Urine UA NEGATIVE (NEGATIVE); Leukocyte Esterase Urine UA NEGATIVE (NEGATIVE); Nitrite Urine UA NEGATIVE (Negative); Occult Blood Urine UA NEGATIVE (Negative); Protein Urine UA NEGATIVE (Negative); Urobilinogen Urine UA 0.2 E.U./dL (0.2)
== END ==
PROVIDERS: PCP Family Medicine; Visit Provider Family Medicine
DX: Z51.81 Encounter for therapeutic drug level monitoring (principal); E78.5 Hyperlipidemia, unspecified; I10 Essential (primary) hypertension; Z12.5 Encounter for screening for malignant neoplasm of prostate
CPT/HCPCS: 36415; 80053; 80061; 81003; 84443; G0103

== ENCOUNTER 2019-03-06 08:41 | Outpatient (CLI) | payer OTHER, SELFPAY ==
[2019-03-06] VITALS (11 sets, daily range): BP systolic 103–131; BP diastolic 75–98; PULSE 78–96; RESP 16–18; TEMP 36.1; O2SAT 94–96
--- NOTE | 2019-03-06 08:42 | DI.RAD.S_ITS ---
PROCEDURE: PAIN L/S FACET INJ/BLK 1ST ANGELI COMPARISON: None. INDICATIONS: SPONDYLSOIS FINDINGS: 6 intraoperative fluoroscopy images demonstrate needle placement at L2, L3 and L4. IMPRESSION: Fluoroscopy for pain management. Dictated by: Abbey Santos M.D. on 03/06/2019 at 12:09 Approved by: Abbey Santos M.D. on 03/06/2019 at 12:09
[2019-03-06] MEDS: MIDAZOLAM 5 MG/5 ML VIAL IV (10:03)
[2019-03-06] MEDS: fentaNYL 100 MCG/2 ML INJ 50 MCG IV (10:03)
[2019-03-06] MEDS: IOPAMIDOL 15 ML VIAL 3 ML INJ (10:11)
[2019-03-06] MEDS: LIDOCAINE 1% 20 ML 10 ML INJ (10:11)
[2019-03-06] MEDS: BUPIVACAINE 0.5% (PF) VIAL 2 ML INJ (10:11)
--- NOTE | 2019-03-06 10:17 | PC.NURSE ---
ASSISTING PT OFF TABLE AND TRANSPORTING TO POST PROC AREA IN STABLE CONDITION. PASSING RN CARE OF PT OFF TO MITCH Cat RN.
--- NOTE | 2019-03-06 10:19 | P.PCN_ITS ---
Procedures Date/Time Date of procedure: 03/06/19 Time of procedure: 10:19 General Procedure description: POST OP DIAGNOSIS 1. FACET ARTHROPATHY PROCEDURES 1. BILATERAL L2, L3, L4 DIAGNOSTIC MB BLOCKS PHYSICIAN: Sang Corral, DO HAYDEN Oscar is referred by Dr. Grayson for treatment of Bilateral Axial LBP. DESCRIPTION OF PROCEDURE Fluoroscopically guided, contrast-controlled bilateral L2, L3, L4 medial branch blocks with 0.5cc of 0.5% Marcaine. Following review of allergy and review of potential side effects and complications, including, but not necessarily limited to, infection, allergic reaction, local tissue breakdown, nerve injury, paralysis, stroke and possible , the patient indicated that the patient understood and agreed to proceed. An informed consent document was signed by the patient, witnessed by a nurse, and placed in the patient's chart. After review of previous anaesthesic history and IV conscious sedation the patient was deemed safe to proceed with todays procedure with IV conscious sed ation as ASA class II designation. Safety time-out was performed to confirm patient ID, procedure to be performed and site of procedure. IV sedation was accomplished with a combination of 5mg of Versed and 50mcg of Fentantyl was administered by the RN after DO order, titrated to patient comfort during the course of the procedure while the patient remained responsive to all verbal commands In the prone position, following sterile prep and drape of the lumbar region, the right L2, L3, L4 anatomical location of the medial branch of the dorsal ramus was identified fluoroscopically. Subsequently an anesthetic skin wheal using 1% lidocaine solution was initiated at each of the anatomical spots. Subsequently then a 22-gauge 3.5-inch spinal needle was atraumatically introduced and advanced under fluoroscopic guidance at each of the corresponding sites at the right L2, L3, L4 MB. After negative aspiration, 0.2cc of Isovue 200 was injected, confirming placement without vascular or intrathecal uptake. Subsequently then 0.5cc of 0.5% Marcaine solution was injected at each of the corresponding sites at the right L2, L3, L4 medial branch locations. The identical procedure was replicated on the left. The patient tolerated the procedure well without signs or symptoms of complications. The patient tolerated the procedure well without signs or symptoms of complications prior to transfer to the recovery area continued monitoring without incident. Post-procedure, the patient was monitored initiating provocative activities to measure the amount of relief from block of the facetogenic pain. The patient reported a VAS of 7 prior to the procedure and a post-procedure VAS of 1. It has been a pleasure to assist in the diagnostic and therapeutic care of your patient. Total Fluoroscopy Time: 12 seconds Total Conscious Sedation Time: 24 min POST OP INSTRUCTIONS The patient was provided with a Pain Log to complete over the next several hours and subsequent days prior to the patient's follow up with the ordering physician. If the patient has premium representative relief to the solution applied, then they may be a candidate for medial branch rhizotomy. The patient is aware, was provided, once again, with a Pain Log and will follow up with the referring physician for review and clinical correlation Sang Corral DO Complications: none
--- NOTE | 2019-03-06 10:55 | PC.NURSE ---
Post procedure note: Patient arrived at 1030 from procedure room. Required 2 person assist to transfer from wheelchair to recliner. Patient sedated and very drowsy arrival. No complaints of pain or unusual numbness or tingling to lower extremities. Hand off report received from Marsha Cardenas RN.
== END 2019-03-06 11:07 | disposition home or self-care (01) ==
LOC: RAD 08:41
PROVIDERS: PCP Family Medicine; Visit Provider Physical Medicine & Rehabilitation
DX: M47.816 Spondylosis without myelopathy or radiculopathy, lumbar region (principal)
CPT/HCPCS: 64493; 64494; 99152; J2250; J3010

== ENCOUNTER 2019-04-24 06:47 | Outpatient (CLI) | payer OTHER, SELFPAY ==
[2019-04-24] VITALS (12 sets, daily range): BP systolic 112–139; BP diastolic 68–92; PULSE 59–82; RESP 16; TEMP 36.4; O2SAT 92–98
--- NOTE | 2019-04-24 06:49 | DI.RAD.S_ITS ---
PROCEDURE: PAIN L/S MED/LAT N RFA BILAT INDICATIONS: SPONDYLOSIS FINDINGS: Fluoroscopic spot filming was performed to verify placement of spinal needles at the L2, L3, L4 level(s), as labeled on the films. Dictated by: Angel Atkins M.D. on 04/24/2019 at 12:05 Approved by: Angel Atkins M.D. on 04/24/2019 at 12:06
[2019-04-24] MEDS: fentaNYL 100 MCG/2 ML INJ 50 MCG IV (08:28)
[2019-04-24] MEDS: MIDAZOLAM 5 MG/5 ML VIAL IV (08:46)
[2019-04-24] MEDS: LIDOCAINE 1% 20 ML 10 ML INJ (08:59)
[2019-04-24] MEDS: BUPIVACAINE 0.5% (PF) VIAL 2 ML INJ (08:59)
--- NOTE | 2019-04-24 09:07 | PC.NURSE ---
ASSISTING PT OFF TABLE AND TRANSPORTING TO POST PROC AREA IN STABLE CONDITION.
--- NOTE | 2019-04-24 09:15 | P.PCN_ITS ---
Procedures Date/Time Date of procedure: 04/24/19 Time of procedure: 09:15 General Procedure description: PREOP DIAGNOSIS 1. RECALCITRANT FACET ARTHROPATHY, POST OP DIAGNOSIS 1. RECALCITRANT FACET ARTHROPATHY PROCEDURES 1. BILATERAL L2, L3 AND L4 MEDIAL BRANCH RADIOFREQUENCY NEUROTOMY PHYSICIAN: Sang Corral DO INDICATIONS: Oscar is referred by Dr. Kaiser for treatment of facet arthropathy. DESCRIPTION OF PROCEDURE Bilateral L2, L3 and L4 medial branch radiofrequency neurotomy The patient is well known to this clinic having undergone previous facet injections with good but temporary relief. The patient has experienced appropriate, concordant relief with previous facet and median branch blocks but the patient's pain has been recalcitrant to further conservative measures. Therefore, based upon the patient's relief and persistent symptoms, the patient is considered an appropriate candidate for facet rhizotomy. All of the patient's questions regarding the risks versus benefits of the procedure, including, but n ot limited to, bleeding, infection, temporary as well as lasting nerve injury, paralysis, stroke, and , as well treatment alternatives were answered to satisfaction. After obtaining informed consent, denial of pertinent drug allergies, as well as being made aware of the potential risks of bleeding, infection, spinal cord trauma, paralysis, temporary and permanent nerve damage, seizure, stroke, and possible , the patient was brought to the fluoroscopy suite and positioned prone on the fluoroscopy table. The lumbar region was prepped with Chlorhexadine and covered with a fenestrated drape in the usual sterile fashion. Appropriate monitors applied including pulse oximeter, pulse, and blood pressure for regular monitoring throughout the procedure. After review of previous anaesthesic history and IV conscious sedation the patient was deemed safe to proceed with todays procedure with IV conscious sedation as ASA class II designation. Safety time-out was performed to confirm patient ID, procedure to be performed and site of procedure. IV sedation was accomplished with a combination of 5mg of Versed and 50mcg of Fentanyl administered by the RN after DO order, titrated to patient comfort during the course of the procedure while the patient remained responsive to all verbal commands. After local infiltration using 1% lidocaine, under fluoroscopic guidance, a 10- cm RF insulated needle with a 10-mm active tip was positioned parallel to the junction of the right the superior articulating process where the L4 medial branch resides. Needle placement was confirmed with motor stimulation of .5v on the right which produced local stimulation without radicular component. The stimulation was then increased to 1.5v with, once again, only local multifidus stimulation without radicular component. The needle was then removed and the identical procedure was performed along the length of the right L3 medial branch with motor stimulation at .7v on the right. The identical procedure was once again performed along the length of the right L2 and medial branch with motor stimulation of .5v on the right. The medial branches were then anesthetised with 0.5% marcaine. This was then followed by two discreet lesions performed at 80 degrees Celsius for 90 seconds each. The identical procedures were repeated on the left. The patient tolerated the procedure well without signs or symptoms of complications prior to transfer to the recovery area continued monitoring without incident. The patient was then transferred to the recovery area where they were observed for an appropriate period of time after the injection. The patient reported a VAS score of 9 prior to the procedure and a post-procedure VAS of 0. Total Fluoroscopy Time: 29 seconds Total Conscious Sedation Time: 34min POST OP INSTRUCTIONS The patient was provided a Pain Log to continue to record the patient's response to the target-specific procedure prior to the patient's follow-up visit with the referring physician. Additionally, specific post-injection care instructions and a contact number to our office were provided if concerns arise regarding possible complications associated with the procedure are suspected. Sang Corral DO Complications: none
== END 2019-04-24 09:44 | disposition home or self-care (01) ==
LOC: RAD 06:48
PROVIDERS: PCP Family Medicine; Referring Provider Physical Medicine & Rehabilitation; Visit Provider Physical Medicine & Rehabilitation
DX: M47.816 Spondylosis without myelopathy or radiculopathy, lumbar region (principal)
CPT/HCPCS: 64635; 64636; 99152; J2250; J3010

== ENCOUNTER → 2019-08-18 08:52 | Outpatient (CLI) | payer OTHER, SELFPAY ==
[2019-08-19 06:48] LABS: COVID19 Sendout Not Detected (Not Detect)
== END ==
PROVIDERS: PCP Family Medicine; Visit Provider Physician Assistant
DX: Z01.812 Encounter for preprocedural laboratory examination (principal)
CPT/HCPCS: 87635

== ENCOUNTER 2019-08-21 08:02 | Outpatient (CLI) | payer OTHER, SELFPAY ==
[2019-08-21] VITALS (12 sets, daily range): BP systolic 120–141; BP diastolic 75–88; PULSE 65–76; RESP 15–98; TEMP 36.8; O2SAT 93–99
--- NOTE | 2019-08-21 08:03 | DI.RAD.S_ITS ---
PROCEDURE: PAIN L INTERLAMINAR/CAUDAL INJ INDICATIONS: SPONDYLOSIS FINDINGS: Fluoroscopic spot filming was performed to verify placement of spinal needles at the L2-L3 level(s), as labeled on the films. Appropriate location(s) of the needle tip(s) was confirmed by injection of iodinated contrast. Dictated by: Angel Atkins M.D. on 08/21/2019 at 10:53 Approved by: Angel Atkins M.D. on 08/21/2019 at 10:54
--- NOTE | 2019-08-21 08:53 | PC.NURSE ---
Pt arrived to pre procedure in significant pain rating 7/10. HXO HTN HRR S1S2 noted. LS CTA. All VSS
[2019-08-21] MEDS: MIDAZOLAM 5 MG/5 ML VIAL IV (09:16)
[2019-08-21] MEDS: fentaNYL 100 MCG/2 ML INJ 50 MCG IV (09:19)
[2019-08-21] MEDS: BUPIVACAINE 0.25% (PF) VIAL 2 ML INJ (09:27)
[2019-08-21] MEDS: BETAMETHASONE 30 MG/5 ML MDV 6 MG INJ (09:27)
[2019-08-21] MEDS: IOPAMIDOL 15 ML VIAL 3 ML INJ (09:28)
[2019-08-21] MEDS: DEXAMETHASONE 10 MG/ML VIAL 20 MG INJ (09:28)
--- NOTE | 2019-08-21 09:52 | P.PCN_ITS ---
Procedures Date/Time Date of procedure: 08/21/19 Time of procedure: 09:52 General Procedure description: POST OP DIAGNOSIS 1. HNP WITH RADICULAR FEATURES, 2. MULTILEVEL CENTRAL STENOSIS, PROCEDURES 1. FLUORSCOPICALLY GUIDED CONTRAST CONTROLLED INTERLAMINAR EPIDURAL STEROID INJECTION - L2/3 PHYSICIAN: Sang Corral, DO INDICATIONS Oscar is referred by for treatment of Bilateral Foraminal Stenosis L>R LE symptoms. FINDINGS Multilevel Central Spinal Stenosis with Nerve Root Compression DESCRIPTION OF PROCEDURE Fluoroscopically guided, contrast-controlled L2/3 translaminar epidural steroid injection. Following review of allergy and review of potential side effects and complications, including, but not necessarily limited to, infection, allergic reaction, local tissue breakdown, temporary as well as permanent nerve injury, paralysis, stroke and possible , the patient indicated that the patient understood and agreed to proceed. An informed consent document was signed by the patient, witnessed by a nurse, and placed in the patient's chart. Additionally, other treatment options including modalities, medications, and physical therapy were reviewed with the patient. After review of previous anaesthesic history and IV conscious sedation the patient was deemed safe to proceed with todays procedure with IV conscious sedation as ASA class II designation. Safety time-out was performed to confirm patient ID, procedure to be performed and site of procedure. IV sedation was accomplished with a combination of 5mg Versed and 50mcg of Fentanyl administered by the RN after DO order, titrated to patient comfort during the course of the procedure while the patient remained responsive to all verbal commands. In the prone position, following sterile prep and drape of the lumbar region,the L2/3 translaminar space was identified fluoroscopically. The skin was anesthetized via a 25-gauge, 1.5-inch needle with 1% lidocaine solution. At this point, a 22-gauge short bevel spinal needle was atraumatically introduced and advanced under fluoroscopic guidance into the region of the L2/3 translaminar space. Depth was confirmed on lateral view. Radiological data, including multiple fluoroscopic views of the lumbar spine, reveal a spinal needle at the L2/3 translaminar space. Lateral views then show placement of the needle in the epidural space. Subsequent views show contrast material flowing superiorly and inferiorly in the epidural space. No vascular or intrathecal uptake is observed. At this point, using loss of resistance technique with saline and air, the epidural space was entered. This was confirmed following negative aspiration with injection of approximately 1.5 cc of Isovue 200, showing excellent epidural flow without vascular or intrathecal uptake. At this point, 1 cc of 1% lidocaine solution combined with 3cc or 20mg of dexamethasone and 6mg of betamethasone was injected without incident. The patient tolerated the procedure well without signs or symptoms of compl ications prior to transfer to the recovery area continued monitoring without incident. The patient was then transferred to the recovery area where they were observed for an appropriate period of time after the injection. The patient reported a VAS score of 9 prior to the procedure and a post-procedure VAS of 0. Total Fluoroscopy Time: 18 seconds Total Conscious Sedation Time: 24min POST OP INSTRUCTIONS The patient was provided a Pain Log to continue to record their response to the target-specific procedure prior to follow-up visit with their referring physician. Additionally, specific post-injection care instructions and a contact number to our office were provided if concerns arise regarding possible complications associated with the procedure are suspected. Sang Corral DO Complications: none
--- NOTE | 2019-08-21 10:47 | PC.NURSE ---
arrived to pre procedure room via , SBA to transfer from wc to chair. states he is woozy so pt held longer until cleared. monitoring resumed by this rn
== END 2019-08-21 10:30 | disposition home or self-care (01) ==
LOC: RAD 08:03
PROVIDERS: PCP Family Medicine; Referring Provider Physical Medicine & Rehabilitation; Visit Provider Physical Medicine & Rehabilitation
DX: M51.16 Intervertebral disc disorders with radiculopathy, lumbar region (principal); M48.061 Spinal stenosis, lumbar region without neurogenic claudication
CPT/HCPCS: 62323; 99152; J0702; J1100; J2250; J3010

== ENCOUNTER → 2019-12-17 10:29 | Outpatient (CLI) | payer OTHER, SELFPAY ==
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
== END ==
PROVIDERS: PCP Family Medicine; Referring Provider Physician Assistant; Visit Provider Physician Assistant
DX: T28.1XXA Burn of esophagus, initial encounter (principal); M47.812 Spondylosis without myelopathy or radiculopathy, cervical region; M50.321 Other cervical disc degeneration at C4-C5 level
CPT/HCPCS: 70360

== ENCOUNTER → 2020-02-18 07:50 | Outpatient (CLI) | payer OTHER, SELFPAY ==
[2020-02-18 08:47] LABS: Add Manual Diff / Slide Review NO; Basophils Absolute Auto 0 /uL (0-100); Basophils Percent Auto 0.4 % (0-2); Eosinophils Absolute Auto 100 /uL (0-450); Eosinophils Percent Auto 1.9 % (2-4); Hematocrit 47.7 % (41-53); Hemoglobin 16.6 g/dL (13.5-17.5); Lymphocytes Absolute Auto 2000 /uL (1100-4500); Lymphocytes Percent Auto 33.8 % (25-40); Mean Corpuscular HGB Conc 34.8 % (30-36); Mean Corpuscular Hemoglobin 31.6 PG (26-34); Mean Corpuscular Volume 90.7 fL (80-100); Monocytes Absolute Auto 600 /uL (0-900); Monocytes Percent Auto 10.5 % (3-14); Neutrophils Absolute Auto 3100 /uL (1500-7000); Neutrophils Percent Auto 53.4 % (50-75); Platelet Count 206 X10^3/uL (150-400); Red Blood Cell Count 5.26 X10^6/uL (4.5-5.9); Red Cell Distribution Width 12.5 % (11.6-14.8); White Blood Cell Count 5.9 X10^3/uL (4.5-11.0)
[2020-02-18 09:34] LABS: Alanine Aminotransferase 22 IU/L (<50); Albumin Globulin Ratio 1.3 (1.0-2.8); Alkaline Phosphatase 58 U/L (38-126); Aspartate Aminotransferase 24 IU/L (17-59); BUN Creatinine Ratio 22.9 (6-22); Blood Urea Nitrogen 19 mg/dL (9-20); Carbon Dioxide 28 mmol/L (22-32); Chloride 106 mmol/L (98-107); Cholesterol 147 mg/dL (140-199); Estimated Glomerular Filt Rate > 60.0 mL/min (>60); Glucose 97 mg/dL (80-110); HDL Cholesterol 46 mg/dL (40-60); HEMOLYSIS 31 (0-50); LDL Cholesterol Calculated 81 mg/dL (<100); Potassium 4.7 mmol/L (3.4-5.1); Sodium 138 mmol/L (137-145); Triglycerides 98 mg/dL (35-150)
== END ==
PROVIDERS: PCP Family Medicine; Referring Provider Family Medicine; Visit Provider Family Medicine
DX: E78.5 Hyperlipidemia, unspecified (principal); I10 Essential (primary) hypertension
CPT/HCPCS: 36415; 80053; 80061; 85025

== ENCOUNTER → 2020-03-09 15:55 | Outpatient (CLI) | payer OTHER, SELFPAY ==
--- NOTE | 2020-03-09 15:58 | DI.RAD.S_ITS ---
PROCEDURE: XR THORACIC SPINE 3V INDICATIONS: pain TECHNIQUE: 3 views of the thoracic spine were acquired. COMPARISON: None. FINDINGS: Bones: No fractures or dislocations. No suspicious bony lesions. Twelve pairs of ribs are noted, and appear intact where visualized. Moderate thoracic spine degenerative disc disease is present, without compression fracture seen. This is most prominent at the middle 3rd of the thoracic spine. Soft tissues: No paravertebral stripe thickening. IMPRESSION: No acute trauma found. Moderate thoracic spine degenerative disc disease best seen at the middle 3rd of the spine. By this examination a definite source of new pain is not identified but chronic pain would be expected. Dictated by: Benton Kelly M.D. on 03/09/2020 at 16:57 Approved by: Benton Kelly M.D. on 03/09/2020 at 16:59
== END ==
PROVIDERS: PCP Family Medicine; Referring Provider Family Medicine; Visit Provider Family Medicine
DX: M51.34 Other intervertebral disc degeneration, thoracic region (principal); G89.29 Other chronic pain
CPT/HCPCS: 72072

== ENCOUNTER 2020-06-21 10:42 | Observation (INO) | payer OTHER, SELFPAY ==
[2020-06-21] VITALS (12 sets, daily range): BP systolic 106–131; BP diastolic 59–91; PULSE 59–72; RESP 14–27; TEMP 36.3–37.6; O2SAT 94–98; BMI 33.7; BMI 32.0
--- NOTE | 2020-06-21 10:42 | DI.RAD.S_ITS ---
PROCEDURE: XR CHEST 1V INDICATIONS: chest pain TECHNIQUE: One view of the chest was acquired. COMPARISON: Located Within [facility], CR, XR CHEST 1V, 09/08/2017, 14:40. FINDINGS: Surgical changes and devices: None. Lungs and pleura: Lungs are difficult to accurately assess due to relatively prominent reduced inspiratory volume bilaterally. At the retrocardiac left lower lobe there is either mild atelectasis or mild pneumonia. No effusion associated.. No pneumothorax. Mediastinum: Mediastinal contours appear normal. Heart size is normal. Bones and chest wall: No suspicious bony lesions. Overlying soft tissues appear unremarkable. IMPRESSION: Reduced inspiratory volume, retrocardiac left lower lobe mild atelectasis and/or pneumonia. Dictated by: Benton Kelly M.D. on 06/21/2020 at 11:12 Approved by: Benton Kelly M.D. on 06/21/2020 at 11:13
[2020-06-21 11:13] LABS: Add Manual Diff / Slide Review NO; Basophils Absolute Auto 0 /uL (0-100); Basophils Percent Auto 0.5 % (0-2); Eosinophils Absolute Auto 100 /uL (0-450); Eosinophils Percent Auto 0.9 % (2-4); Hematocrit 43.5 % (41-53); Hemoglobin 15.5 g/dL (13.5-17.5); Lymphocytes Absolute Auto 1600 /uL (1100-4500); Lymphocytes Percent Auto 28.1 % (25-40); Mean Corpuscular HGB Conc 35.7 % (30-36); Mean Corpuscular Hemoglobin 32.4 PG (26-34); Mean Corpuscular Volume 90.7 fL (80-100); Monocytes Absolute Auto 500 /uL (0-900); Monocytes Percent Auto 9.3 % (3-14); Neutrophils Absolute Auto 3600 /uL (1500-7000); Neutrophils Percent Auto 61.2 % (50-75); Platelet Count 206 X10^3/uL (150-400); Red Blood Cell Count 4.79 X10^6/uL (4.5-5.9); Red Cell Distribution Width 13.2 % (11.6-14.8); White Blood Cell Count 5.8 X10^3/uL (4.5-11.0)
--- NOTE | 2020-06-21 11:20 | ED.CHESTPAIN ---
HPI - Chest Pain General Chief Complaint: Chest Pain Stated Complaint: Chest Pain Time Seen by Provider: 06/21/20 11:20 Source: patient and EMS Mode of arrival: EMS Limitations: no limitations History of Present Illness HPI narrative: Patient is a 64-year-old male here for evaluation of left-sided chest discomfort. He states that it occurred approximately 2 hours ago while he was at work talking with a co-worker. He was a fairly sudden onset. He has never had anything like this in the past. Did have a cardiac workup approximately 20 years ago and he was told that everything was fine. At the time my evaluation he reports his symptoms have improved but are not all the way resolved. He did receive nitro prior to arrival. He is afebrile. Has had a cough but no fevers. Related Data Previous Rx's Medication Instructions Recorded lisinopril 10 mg tablet 10 mg PO Q DAY #90 tab 03/09/20 simvastatin 20 mg tablet 20 mg PO HS #90 tab 03/09/20 albuterol sulfate 90 mcg/actuation 2 puff INHALATION Q6H PRN #8.5 g 06/07/20 aerosol inhaler fluticasone prop.50 mcg 1 ea INTRANASAL BID PRN #1 ea 06/07/20 spray,suspen-sod.chloride 0.9% nasal spray kit Allergies Allergy/AdvReac Type Severity Reaction Status Date / Time aspirin [ASPIRIN] Allergy Unknown Hives Verified 06/04/20 15:09 Review of Systems Constitutional Constitutional: Denies fatigue, Denies fever(s) and Denies headache(s) Eyes Eyes: Denies change in vision ENT Ears, Nose, Mouth, and Throat: Denies headache(s) and Denies sore throat Cardiovascular Cardiovascular: Reports chest pain and Reports dyspnea Respiratory Respiratory: Reports pain on inspiration and Reports dyspnea Gastrointestinal Gastrointestinal: Denies abdominal pain, Denies nausea and Denies vomiting Genitourinary Genitourinary: Denies dysuria Genitourinary: Denies dysuria Musculoskeletal Musculoskeletal: Denies arthralgias and Denies myalgias Integumentary/Breasts Skin/Breast: Denies rash Neurologic Neurologic: Denies behavioral changes and Denies headache(s) Psychiatric Psychiatric: Denies behavioral changes Endocrine Endocrine: Denies fatigue Hematologic/Lymphatic On Anticoagulants: No Allergic/Immunologic Allergic/Immunologic: Denies urticaria and Reports seasonal rhinorrhea Patient History Medical History Cervical spondylosis without myelopathy (~2012) Chronic headaches Chronic left-sided thoracic back pain Degenerative disc disease Degenerative joint disease of mandible Herniated nucleus pulposus, lumbar HTN (hypertension) Hyperlipidemia Perineal rash in male Seasonal allergic rhinitis Tennis elbow Urinary urgency Surgical History History of cardiac catheterization (2005) History of cholecystectomy (2002) History of hernia repair (2005) History of Myla fundoplication (1999) Family History Father Stroke Mother No problems noted. Family/Other Cancer Social History household members: spouse Smoking Status: Former smoker Tobacco: How many years used: 5 alcohol intake: never substance use type: does not use Smoking Status: Former smoker tobacco type: smokeless tobacco alcohol intake frequency: 0-2 drinks per day Substance Use Type: does not use Exam Initial Vital Signs Initial Vital Signs: Vital Signs Temperature 99.6 F 06/21/20 10:48 Pulse Rate 70 06/21/20 10:48 Respiratory Rate 16 06/21/20 10:48 Blood Pressure 117/64 06/21/20 10:48 Pulse Oximetry 97 06/21/20 10:48 Const General: cooperative, comfortable and well developed Limitations: mental status not altered HENMT Head: normal to inspection and normocephalic Eyes General: appearance normal, both eyes and all related structures Chest Chest: No tenderness Resp Effort & Inspection: normal respiratory effort Auscultation: clear to auscultation bilaterally Cardio Rate: regular rate Rhythm: regular rhythm GI Inspection: non-distended Palpation: soft, No firm and No tender Skin Lesions: no lesions Rashes: no rashes Neuro General: patient alert, patient awake and patient oriented x3 Cognition: normal cognition Speech: speech normal Extrem General: normal to inspection and capillary refill normal Psych Appearance: grossly normal and well kempt Scores HEART Score Heart Score history: Moderately Suspicious Heart Score EKG: Normal Heart Score Age: 45-64 years old Heart Score risk factors: > 3 risk factors or hx of atherosclerotic disease Heart Score troponin: < or = to normal limit Heart Score Total: 4 Course Orders Ordered: ED Orders 06/21/20 10:42 XR chest 1V Stat 06/21/20 10:49 EKG-12 Lead Stat 06/21/20 11:05 Complete Blood Count AUTO DIFF Stat Comprehensive Metabolic Panel Stat Lipase Stat Magnesium Stat Partial Thromboplastin Time Stat Prothrombin Time INR Stat Troponin & CK Cardiac Panel Stat 06/21/20 13:12 COVID19 - ADMIT ([employer] swab/PCR) Stat Acetaminophen (Acetaminophen 325 Mg Tablet) 650 mg PO Q6HR PRN PRN Reason: Fever/Mild Pain (1-3) Calcium Carbonate (Calcium Carbonate 500 Mg Tab) 1,000 mg PO Q4HR PRN PRN Reason: Dyspepsia Morphine Sulfate (Morphine 2 Mg/Ml Inj) 2 mg IV Q4HR PRN PRN Reason: Pain, Moderate (4-6) Naloxone HCl (Naloxone 0.4 Mg/Ml Vial) 0.2 mg IV Q2MIN PRN PRN Reason: Opiate Reversal Ondansetron HCl (Ondansetron 4 Mg/2 Ml Inj) 4 mg IV Q8HR PRN PRN Reason: Nausea And Vomiting Pantoprazole Sodium (Pantoprazole Dr 40 Mg Tablet) 40 mg PO 0700 [facility] Vital Signs Vital signs: Vital Signs - 8 hr 06/21/20 10:48 06/21/20 11:00 06/21/20 11:30 Temperature 99.6 F Pulse Rate 70 71 65 Respiratory Rate 16 14 Blood Pressure 117/64 107/60 106/59 L Pulse Oximetry 97 95 95 06/21/20 12:00 06/21/20 12:30 06/21/20 13:00 Temperature Pulse Rate 65 66 65 Respiratory Rate 22 20 27 H Blood Pressure 109/61 117/67 117/67 Pulse Oximetry 95 97 97 MDM - Chest Pain Lab Data Attestation: I reviewed the patient's lab results. Result diagrams: 06/21/20 11:05 06/21/20 11:05 Labs: Lab Results 06/21/20 06/21/20 06/21/20 Range/Units 11:05 11:05 11:05 WBC 5.8 (4.5-11.0) X10^3/uL RBC 4.79 (4.5-5.9) X10^6/uL Hgb 15.5 (13.5-17.5) g/dL Hct 43.5 (41-53) % MCV 90.7 (80-100) fL MCH 32.4 (26-34) PG MCHC 35.7 (30-36) % RDW 13.2 (11.6-14.8) % Plt Count 206 (150-400) X10^3/uL Neut % (Auto) 61.2 (50-75) % Lymph % (Auto) 28.1 (25-40) % [place] % (Auto) 9.3 (3-14) % Eos % (Auto) 0.9 L (2-4) % Baso % (Auto) 0.5 (0-2) % Neut # (Auto) 3600 (4737-1736) /uL Lymph # (Auto) 1600 (1087-8047) /uL [place] # (Auto) 500 (0-900) /uL Eos # (Auto) 100 (0-450) /uL Baso # (Auto) 0 (0-100) /uL PT 12.1 (10.1-12.7) SECONDS INR 1.1 (0.9-1.3) APTT 34 (26.4-36.2) SECONDS Sodium 140 (137-145) mmol/L Potassium 3.8 (3.4-5.1) mmol/L Chloride 108 H (98-107) mmol/L Carbon Dioxide 25 (22-32) mmol/L BUN 12 (9-20) mg/dL Creatinine 0.84 (0.66-1.25) mg/dL Estimated GFR > 60.0 (>60) mL/min BUN/Creatinine Ratio 14.3 (6-22) Glucose 107 (80-110) mg/dL Calcium 8.6 (8.4-10.2) mg/dL Magnesium 2.0 (1.6-2.3) mg/dL Total Bilirubin 0.8 (0.2-1.3) mg/dL AST 25 (17-59) IU/L ALT 22 (<50) IU/L Alkaline Phosphatase 57 (38-126) U/L Total Creatine Kinase 110 (55-170) U/L CK-MB (CK-2) 0.72 (<2.37) ng/mL CK-MB (CK-2) Rel Index 0.7 L (1.5-5.0) % Troponin I < 0.012 (0.01-0.034) ng/mL Total Protein 6.6 (6.3-8.2) g/dL Albumin 3.8 (3.5-5.0) g/dL Globulin 2.8 (1.7-4.1) g/dL Albumin/Globulin Ratio 1.4 (1.0-2.8) Lipase 59 (23-300) U/L SARS-CoV-2 (PCR) (Negative) 06/21/20 Range/Units 13:12 WBC (4.5-11.0) X10^3/uL RBC (4.5-5.9) X10^6/uL Hgb (13.5-17.5) g/dL Hct (41-53) % MCV (80-100) fL MCH (26-34) PG MCHC (30-36) % RDW (11.6-14.8) % Plt Count (150-400) X10^3/uL Neut % (Auto) (50-75) % Lymph % (Auto) (25-40) % [place] % (Auto) (3-14) % Eos % (Auto) (2-4) % Baso % (Auto) (0-2) % Neut # (Auto) (9842-0205) /uL Lymph # (Auto) (3539-2380) /uL [place] # (Auto) (0-900) /uL Eos # (Auto) (0-450) /uL Baso # (Auto) (0-100) /uL PT (10.1-12.7) SECONDS INR (0.9-1.3) APTT (26.4-36.2) SECONDS Sodium (137-145) mmol/L Potassium (3.4-5.1) mmol/L Chloride (98-107) mmol/L Carbon Dioxide (22-32) mmol/L BUN (9-20) mg/dL Creatinine (0.66-1.25) mg/dL Estimated GFR (>60) mL/min BUN/Creatinine Ratio (6-22) Glucose (80-110) mg/dL Calcium (8.4-10.2) mg/dL Magnesium (1.6-2.3) mg/dL Total Bilirubin (0.2-1.3) mg/dL AST (17-59) IU/L ALT (<50) IU/L Alkaline Phosphatase (38-126) U/L Total Creatine Kinase (55-170) U/L CK-MB (CK-2) (<2.37) ng/mL CK-MB (CK-2) Rel Index (1.5-5.0) % Troponin I (0.01-0.034) ng/mL Total Protein (6.3-8.2) g/dL Albumin (3.5-5.0) g/dL Globulin (1.7-4.1) g/dL Albumin/Globulin Ratio (1.0-2.8) Lipase (23-300) U/L SARS-CoV-2 (PCR) Negative (Negative) Urine Dip Bedside Urine Glucose Negative Bedside Urine Bilirubin - Negative Bedside Urine Ketone - Negative Urine Specific [place] 1.030 Bedside Urine Occult Blood - Negative Bedside Urine pH 6 Bedside Urine Protein - Negative Bedside Urine Urobilinogen - Negative Bedside Urine Nitrite - Negative Bedside Urine Leukocytes - Negative Esterase Imaging Data Chest x-ray: Radiologist's Impression: [address] [id number] ReportSigned Patient: Oscar Maloney GMR#: [id number]: 6Acct:[id number]/Sex: 64 / MDate of Service: 06/21/20Loc: EDAccession Number: [id number] Procedure: XR chest 1V Ordering Provider: Leroy Capone D.O. PROCEDURE: XR CHEST 1V INDICATIONS: chest pain TECHNIQUE: One view of the chest was acquired. COMPARISON: [facility], , XR CHEST 1V, 09/08/2017, 14:40. FINDINGS: Surgical changes and devices: None. Lungs and pleura: Lungs are difficult to accurately assess due to relatively prominent reduced inspiratory volume bilaterally. At the retrocardiac left lower lobe there is either mild atelectasis or mild pneumonia. No effusion associated.. No pneumothorax. Mediastinum: Mediastinal contours appear normal. Heart size is normal. Bones and chest wall: No suspicious bony lesions. Overlying soft tissues appear unremarkable. IMPRESSION: Reduced inspiratory volume, retrocardiac left lower lobe mild atelectasis and/or pneumonia. Dictated by: Benton Kelly M.D. on 06/21/2020 at 11:12 Approved by: Benton Kelly M.D. on 06/21/2020 at 11:13 ECG Data Attestation: I personally reviewed and interpreted this ECG as follows: Prior ECG tracings: not available for review Interpretation: Sinus rhythm Ventricular rate of 70 Normal axis LVH No ST T wave changes MDM Narrative Medical decision making narrative: Patient does have a heart score of 4. Chest x-ray an EKG unremarkable. Labs unremarkable. Discussed with him options to include discharge home and follow-up as an outpatient for stress test versus being admitted to the hospital. After this discussion he did opt to be admitted to the hospital for further risk stratification. Discussed the case with Dr. Borja with Internal Medicine who will admit for further evaluation and treatment. Discharge Plan Departure Patient Disposition: Admitted as Observation Clinical Impression: Chest pain Admit Date/Time: 06/21/20 14:08 Admit Provider: Lauro Borja
[2020-06-21 11:22] LABS: INR 1.1 (0.9-1.3); Prothrombin Time 12.1 SECONDS (10.1-12.7)
[2020-06-21 11:24] LABS: PTT Partial Thromboplastin Tim 34 SECONDS (26.4-36.2)
[2020-06-21 11:28] LABS: Alanine Aminotransferase 22 IU/L (<50); Albumin 3.8 g/dL (3.5-5.0); Albumin Globulin Ratio 1.4 (1.0-2.8); Alkaline Phosphatase 57 U/L (38-126); Aspartate Aminotransferase 25 IU/L (17-59); BUN Creatinine Ratio 14.3 (6-22); Bilirubin Total 0.8 mg/dL (0.2-1.3); Blood Urea Nitrogen 12 mg/dL (9-20); Calcium 8.6 mg/dL (8.4-10.2); Carbon Dioxide 25 mmol/L (22-32); Chloride 108 mmol/L (98-107); Creatine Kinase 110 U/L (55-170); Estimated Glomerular Filt Rate > 60.0 mL/min (>60); Globulin 2.8 g/dL (1.7-4.1); Glucose 107 mg/dL (80-110); HEMOLYSIS < 15 (0-50); Lipase 59 U/L (23-300); Potassium 3.8 mmol/L (3.4-5.1); Sodium 140 mmol/L (137-145); Total Protein 6.6 g/dL (6.3-8.2)
[2020-06-21 11:39] LABS: Troponin I < 0.012 ng/mL (0.01-0.034)
[2020-06-21 11:43] LABS: CKMB % Relative Index 0.7 % (1.5-5.0); Creatine Kinase MB 0.72 ng/mL (<2.37)
[2020-06-21 14:28] LABS: COVID19 - ADMIT (NP swab/PCR) Negative (Negative)
--- NOTE | 2020-06-21 16:27 | DI.ECHO.S_ITS ---
[facility] +---------+ : : [address] [place] [address] : : : : [id number] : : : : Phone: [phone]---------+ Echocardiogram Report + + :Name: RENETTA SMITH Study Date: 06/22/2020 Height: 72 in : :[facility] ReadingLocation: Weight: 235 lb : : Gender: Male BSA: 2.3 m2 : :: 1955 Age: 64 yrs BP: 119/67 mmHg: :Reason For Study: CHEST PAIN : :Ordering Physician: VINCE, : :RAFAT FREIRE Performed By: Marlyn Damon : :Referring: RAFAT CLARKE : + + Interpretation Summary The left ventricle is normal in size and wall thickness. Left ventricular systolic function appears normal without focal wall motion abnormalities. The ejection fraction is estimated to be 60-65%. Diastolic parameters suggest a relaxation abnormality of the left ventricle, consistent with probable normal filling pressures. The right ventricle is normal in size and function. The right ventricular systolic pressure is estimated to be at least 28 mmHg based on an estimated right atrial pressure of 8 mm Hg. Both atria are normal in size. There is mild to moderate aortic regurgitation. There is no other significant valvular heart disease. The aortic root is borderline dilated. The ascending aorta is moderately enlarged. Procedure: A two-dimensional transthoracic echocardiogram with color flow and Doppler was performed. The study quality was technically adequate. There is no prior echocardiogram noted for this patient. The patient was in sinus bradycardia with heart rates between 58-65 bpm during the exam. Left Ventricle: The left ventricle is normal in size and wall thickness. Left ventricular systolic function appears normal without focal wall motion abnormalities. The ejection fraction is estimated to be 60-65%. Diastolic parameters suggest a relaxation abnormality of the left ventricle, consistent with probable normal filling pressures. Right Ventricle: The right ventricle is normal in size and function. Atria: Both atria are normal in size. There is no Doppler evidence for an interatrial shunt. Mitral Valve: The mitral valve is normal in structure and function. There is trace mitral regurgitation. Aortic Valve: The aortic valve opens well. There is no aortic valve stenosis. There is mild to moderate aortic regurgitation. Tricuspid Valve: The tricuspid valve is not well visualized, but is grossly normal. The right ventricular systolic pressure is estimated to be at least 28 mmHg based on an estimated right atrial pressure of 8 mm Hg. There is trace tricuspid regurgitation. Pulmonic Valve: The pulmonic valve is not well visualized. There is no pulmonic valvular regurgitation. There is no other significant valvular heart disease. Great Vessels: The aortic root is borderline dilated. The ascending aorta is moderately enlarged. The IVC is dilated (diameter is greater than 2.1 cm) yet it collapses greater than 50% with a sniff. This suggests a right atrial pressure of 8 mm Hg. Pericardium/ Pleura There is no pericardial effusion. There is no pleural effusion. MMode/2D Measurements & Calculations LVIDd: 5.1 cm LVOT diam: 2.3 cm LVIDs: 3.4 cm Ao root diam: 3.9 cm FS: 32.9 % asc Aorta Diam: 4.4 cm EPSS: 0.71 cm Ao Arch Diam (Prox Trans): 3.5 cm IVSd: 1.1 cm LVPWd: 0.97 cm LV dill. diameter/BSA (cm/m^2): 2.2 LV sys. diameter/BSA (cm/m^2): 1.5 LA A2 area: 22.6 cm2 RA long axis: 5.7 cm LA A4 area: 18.5 cm2 RA area: 17.5 cm2 LA length (vol): 5.9 cm RA vol: 45.9 ml LA vol: 59.7 ml RA : 20.1 ml/m2 LA vol index: 26.2 ml/m2 IVC diam: 2.3 cm RVD1 (basal): 2.5 cm TAPSE: 2.2 cm Doppler Measurements & Calculations Ao V2 max: 148.2 cm/sec LVOT Max Abdullahi: 103.3 cm/sec Ao V2 mean: 95.5 cm/sec LV V1 max P.3 mmHg Ao max P.8 mmHg LV V1 VTI: 23.6 cm Ao mean P.1 mmHg WILLIAMS(I,D): 3.2 cm2 Ao V2 VTI: 30.9 cm WILLIAMS(V,D): 2.9 cm2 sev ratio: 0.76 WILLIAMS indexed to BSA (cm^2/m^2): 1.4 MV E max abdullahi: 52.7 cm/sec TR max abdullahi: 221.9 cm/sec MV A max abdullahi: 56.3 cm/sec TR max P.7 mmHg MV E/A: 0.94 PA V2 max: 75.3 cm/sec Med Peak E' Abdullahi: 6.6 cm/sec PA V2 mean: 58.0 cm/sec E/E' med: 8.0 PA mean P.4 mmHg Lat Peak E' Abdullahi: 8.8 cm/sec PA pr(Accel): 25.9 mmHg E/E' lat: 6.0 E/e' average: 7.0 MV dec time: 0.23 sec SV(LVOT): 97.7 ml Reading Physician:11:58 AM
--- NOTE | 2020-06-21 16:31 | PM.HP.1 ---
History of Present Illness History of Present Illness Date Patient Seen: 06/21/20 Time Patient Seen: 16:31 Chief complaint: Chest Pain Narrative: 64 year old male with PMH of HTN, HLD, obesity, GERD s/p fundoplication many years ago who presented to the emergency room after an episode of chest pain. This started abruptly at work while the patient was sitting and talking with a co-worker. The chest pain was left-sided, felt like a pressure sensation in the center left of his chest with slight radiation into the neck and shoulder. He did not have any associated nausea, vomiting, or diaphoresis. He denied any headache, vision changes, palpitations, dizziness, abdominal pain, recent fever, chills, or sick contacts. He does report similar episodes over the past few years, but these are not seemingly related to exertion and have resolved without issue. He does report a cough at night. He has not been on PPI therapy since his Fundoplication. He has not tried anything for the pain at home and has not seemingly found an overt cause. He received nitro with EMS which improved his symptoms. In the emergency room, patient's vital signs were unremarkable. Initial laboratory evaluation revealed an unremarkable CBC, normal coagulation studies, an unremarkable chemistry panel. Troponin was negative. COVID-19 testing was negative. Chest x-ray showed an elevated left hemidiaphragm with compressive atelectasis likely of the left lower lobe. EKG showed normal sinus rhythm with no concerning findings indicative of ischemia. Patient's heart score is 4 based on age, history, and risk factors of hypertension, hyperlipidemia, and obesity. Patient History Medical History Cervical spondylosis without myelopathy (~2012) Chronic headaches Chronic left-sided thoracic back pain Degenerative disc disease Degenerative joint disease of mandible Herniated nucleus pulposus, lumbar HTN (hypertension) Hyperlipidemia Perineal rash in male Seasonal allergic rhinitis Tennis elbow Urinary urgency Surgical History History of cardiac catheterization (2005) History of cholecystectomy (2002) History of hernia repair (2005) History of Myla fundoplication (1999) Family & Social History Family History Father Stroke Mother No problems noted. Family/Other Cancer Social History: household members spouse Prior Living Arrangements House Safety & Behavioral: Feels Safe in Current Yes Environment Been Physically Hurt or No Threatened By a Person Suicidal Ideation Description None Suicide Plan Description No Plan Tobacco & Substance use: Tobacco type smokeless tobacco Smoking Status Former smoker alcohol intake never alcohol intake frequency 0-2 drinks per day Substance Use Type does not use Meds Home Medications and Allergies Home Medications Medication Instructions Recorded Confirmed Type lisinopril 10 mg tablet 10 mg PO Q DAY #90 tab 03/09/20 06/21/20 Rx simvastatin 20 mg tablet 20 mg PO HS #90 tab 03/09/20 06/21/20 Rx albuterol sulfate 90 mcg/actuation 2 puff INHALATION Q6H PRN #8.5 g 06/07/20 06/21/20 Rx aerosol inhaler fluticasone prop.50 mcg 1 ea INTRANASAL BID PRN #1 ea 06/07/20 06/21/20 Rx spray,suspen-sod.chloride 0.9% nasal spray kit Allergies Allergy/AdvReac Type Severity Reaction Status Date / Time aspirin [ASPIRIN] Allergy Unknown Hives Verified 06/04/20 15:09 Review of Systems Review of Systems Narrative: All other systems reviewed with the patient and are negative unless otherwise stated. Exam Vital Signs (past 8 hours): - 06/21/20 10:48 06/21/20 11:00 06/21/20 11:30 Temperature 99.6 F Pulse Rate 70 71 65 Respiratory Rate 16 14 Blood Pressure 117/64 107/60 106/59 L Pulse Oximetry 97 95 95 06/21/20 12:00 06/21/20 12:30 06/21/20 13:00 Temperature Pulse Rate 65 66 65 Respiratory Rate 22 20 27 H Blood Pressure 109/61 117/67 117/67 Pulse Oximetry 95 97 97 06/21/20 14:24 06/21/20 16:00 Temperature 98.4 F 99.0 F Pulse Rate 68 63 Respiratory Rate 18 16 Blood Pressure 124/91 H 131/67 Pulse Oximetry 97 94 Oxygen Delivery Method Room Air Narrative Exam Narrative: GENERAL APPEARANCE: Well developed, well nourished, obese male with BMI 32.0 in no acute distress. SKIN: Inspection of the skin reveals no rashes, ulcerations or petechiae. HEENT: Normocephalic atraumatic, extraocular muscles are intact, oropharynx is clear and mucous membranes are moist, neck is supple without adenopathy NECK: Supple and symmetric. There was no thyroid enlargement, and no tenderness, or masses were felt. CHEST: Normal AP diameter and normal contour without any kyphoscoliosis. LUNGS: Auscultation of the lungs revealed no wheezes, rhonchi, or rales. CARDIOVASCULAR: There was a regular rate and rhythm without any murmurs, gallops, rubs. Peripheral pulses were 2+ and symmetric. ABDOMEN: Soft and nontender with normal bowel sounds. No ascites was noted. MUSCULOSKELETAL: There was no tenderness or effusions noted. Muscle strength and tone were normal. EXTREMITIES: No cyanosis, clubbing or edema. NEUROLOGIC: Alert and oriented x 3. Normal affect. Strength is +5/5 in the Upper Extremities and Lower Extremities Bilaterally. Objective ECG Impression: Normal sinus rhythm Imaging Chest x-ray: My impression: Reduced inspiratory volume, likely atelactasis of LLL. Elevated L hemidiaphragm and prominent gastric bubble. No bony abnormalities. Radiologist's impression: PROCEDURE: XR CHEST 1V INDICATIONS: chest pain TECHNIQUE: One view of the chest was acquired. COMPARISON: [facility], , XR CHEST 1V, 09/08/2017, 14:40. FINDINGS: Surgical changes and devices: None. Lungs and pleura: Lungs are difficult to accurately assess due to relatively prominent reduced inspiratory volume bilaterally. At the retrocardiac left lower lobe there is either mild atelectasis or mild pneumonia. No effusion associated.. No pneumothorax. Mediastinum: Mediastinal contours appear normal. Heart size is normal. Bones and chest wall: No suspicious bony lesions. Overlying soft tissues appear unremarkable. IMPRESSION: Reduced inspiratory volume, retrocardiac left lower lobe mild atelectasis and/or pneumonia. Labs Result Diagrams: 06/21/20 11:05 06/21/20 11:05 Labs: Laboratory Results - last 24 hr 06/21/20 06/21/20 06/21/20 11:05 11:05 11:05 WBC 5.8 RBC 4.79 Hgb 15.5 Hct 43.5 MCV 90.7 MCH 32.4 MCHC 35.7 RDW 13.2 Plt Count 206 Neut % (Auto) 61.2 Lymph % (Auto) 28.1 [place] % (Auto) 9.3 Eos % (Auto) 0.9 L Baso % (Auto) 0.5 Neut # (Auto) 3600 Lymph # (Auto) 1600 [place] # (Auto) 500 Eos # (Auto) 100 Baso # (Auto) 0 PT 12.1 INR 1.1 APTT 34 Sodium 140 Potassium 3.8 Chloride 108 H Carbon Dioxide 25 BUN 12 Creatinine 0.84 Estimated GFR > 60.0 BUN/Creatinine Ratio 14.3 Glucose 107 Calcium 8.6 Magnesium 2.0 Total Bilirubin 0.8 AST 25 ALT 22 Alkaline Phosphatase 57 Total Creatine Kinase 110 CK-MB (CK-2) 0.72 CK-MB (CK-2) Rel Index 0.7 L Troponin I < 0.012 Total Protein 6.6 Albumin 3.8 Globulin 2.8 Albumin/Globulin Ratio 1.4 Lipase 59 SARS-CoV-2 (PCR) 06/21/20 13:12 WBC RBC Hgb Hct MCV MCH MCHC RDW Plt Count Neut % (Auto) Lymph % (Auto) [place] % (Auto) Eos % (Auto) Baso % (Auto) Neut # (Auto) Lymph # (Auto) [place] # (Auto) Eos # (Auto) Baso # (Auto) PT INR APTT Sodium Potassium Chloride Carbon Dioxide BUN Creatinine Estimated GFR BUN/Creatinine Ratio Glucose Calcium Magnesium Total Bilirubin AST ALT Alkaline Phosphatase Total Creatine Kinase CK-MB (CK-2) CK-MB (CK-2) Rel Index Troponin I Total Protein Albumin Globulin Albumin/Globulin Ratio Lipase SARS-CoV-2 (PCR) Negative Assessment & Plan Assessment & Plan narrative: 64 year old male with PMH of HTN, HLD, obesity, GERD s/p fundoplication many years ago who presented to the emergency room after an episode of chest pain. Admitted for further evaluation of chest pain with stress testing given intermediate risk HEART score. 1. Atypical chest pain, acute, present on admission -patient presents with moderately concerning story of left-sided chest pressure with radiation into the left arm and neck that resolved with nitroglycerin in the emergency room. EKG is nonischemic appearing, and initial troponins are negative. -chest x-ray with likely left lower lobe atelectasis and elevated left hemidiaphragm from his prior fundoplication, pneumonia is unlikely given no fevers, leukocytosis -heart score is 4 based on risk factors including hypertension, hyperlipidemia, and obesity, age, and history. -have ordered nuclear stress testing, TTE -obtain 8 hour troponin to further evaluate for ACS. -Differential includes musculoskeletal pain and GERD given nocturnal cough and history of fundoplication. Will start pantoprazole. -Check a1c, tsh, lipid panel. -of note patient reports aspirin allergy. 2. HTN - continue home lisinopril, blood pressures controlled thus far since arrival. 3. HLD, - will check fasting lipid panel as noted above. Continue home statin. 4. Obesity, BMI 32 - patient's obesity contributes toward his HTN, HLD and puts him at elevated risk for acute cardiac events. Code: Full, surrogate decision maker is the patient's . Dispo: Admitted under observation status as his stay is not expected to exceed 2 midnights. DVT: SCDs
[2020-06-21] MEDS: ACETAMINOPHEN 325 MG TABLET 650 MG PO (19:45)
[2020-06-21 20:05] LABS: Troponin I < 0.012 ng/mL (0.01-0.034)
[2020-06-22] VITALS (8 sets, daily range): BP systolic 110–134; BP diastolic 66–75; PULSE 60–81; RESP 16–19; TEMP 35.8–36.6; O2SAT 93–97
[2020-06-22 05:25] LABS: BUN Creatinine Ratio 16.7 (6-22); Blood Urea Nitrogen 14 mg/dL (9-20); Calcium 8.5 mg/dL (8.4-10.2); Carbon Dioxide 27 mmol/L (22-32); Chloride 105 mmol/L (98-107); Cholesterol 120 mg/dL (140-199); Estimated Glomerular Filt Rate > 60.0 mL/min (>60); Glucose 99 mg/dL (80-110); HDL Cholesterol 33 mg/dL (40-60); HEMOLYSIS < 15 (0-50); LDL Cholesterol Calculated 70 mg/dL (<100); Potassium 3.9 mmol/L (3.4-5.1); Sodium 136 mmol/L (137-145); Triglycerides 85 mg/dL (35-150)
[2020-06-22 06:03] LABS: Hemoglobin A1C% w Est Avg Glu 5.5 % (4.0-6.0)
[2020-06-22 06:05] LABS: TSH w/ Reflex to FT4 2.15 uIU/mL (0.47-4.68)
[2020-06-22] MEDS: PANTOPRAZOLE DR 40 MG TABLET PO (08:14)
--- NOTE | 2020-06-22 09:11 | PC.NURSE ---
Day shift: Pt back on unit from Stress Test at approx 0905. Per Jurgen, Pt can eat uinit 1000 but NPO except for water after that. Pt denies any chest pain at this time. Independent in room and steady on his feet. Call light in reach. Pt agrees to let RN know if he has any chest pain or changes w/ how he feels. Will continue w/ plan of care.
[2020-06-22] MEDS: ACETAMINOPHEN 325 MG TABLET 650 MG PO (10:09)
--- NOTE | 2020-06-22 11:21 | CM.DANOTE ---
DCP: Case received, EMR reviewed and met with patient. Introduced self and role. Was able to obtain information from patient regarding his baseline activity status prior to hospitalization. DCP assessment completed with information currently available. Patient is a 64 year old male who admitted yesterday afternoon to the care of the hospitalist team. PCP: Dr. Kaiser. Payer: confirmed: [facility]. Patient came to the hospital via ambulance secondary to having chest pain. According to notes, pain had started on the left side of his chest and had gotten worse. Patient is here for a cardiac work up. He had his echo cardiogram this morning, and the first part of his stress test. He will have the second part this afternoon. Met with patient in his room, one on one, and with the team during bedside rounds. Discussion with hospitalist was that patient could go home this afternoon after all of the tests are completed. Patient is alert and oriented, and he is independent at his baseline. He was walking in his room with no DME supplies. He resides in [place] with his spouse, Dorys. 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 P: DCP to continue to follow. Patient could possibly go home this pm after his work up is completed. Laura Perez RN/Market Developer
--- NOTE | 2020-06-22 12:52 | PC.NURSE ---
Day shift: Pt off unit for 2nd part of stress test at approx 1240.
--- NOTE | 2020-06-22 13:14 | PM.TREADMILL ---
Cardiac Stress Test Report Referral & Results Date Patient Seen: 06/22/20 Time Patient Seen: 13:14 Requesting provider: Lauro Borja Indication: chest pain Rest ECG: sinus rhythm Procedure Note: Standard Sanjiv protocol, 8:00, 8.8 METS Fair exercise capacity, MARIA FERNANDA 0% Normal hemodynamic response to exercise No chest pain or anginal symptoms No significant ST changes at peak exercise No ectopy Impression: Normal exercise stress test Please note: Actual ECG tracings can be found in the PACS system.
--- NOTE | 2020-06-22 13:59 | PC.NURSE ---
Day shift: Pt back on AC unit at approx 1400. He is in shower now. Belen BRYANT is helping him.
--- NOTE | 2020-06-22 17:32 | P.DS_ITS ---
History of Present Illness History of Present Illness Date Patient Seen: 06/22/20 Chief complaint: Chest Pain Narrative: 64 year old male with PMH of HTN, HLD, obesity, GERD s/p fundoplicat ion many years ago who presented to the emergency room after an episode of chest pain. This started abruptly at work while the patient was sitting and talking with a co-worker. The chest pain was left-sided, felt like a pressure sensation in the center left of his chest with slight radiation into the neck and shoulder. He did not have any associated nausea, vomiting, or diaphoresis. He denied any headache, vision changes, palpitations, dizziness, abdominal pain, recent fever, chills, or sick contacts. He does report similar episodes over the past few years, but these are not seemingly related to exertion and have resolved without issue. He does report a cough at night. He has not been on PPI therapy since his Fundoplication. He has not tried anything for the pain at home and has not seemingly found an overt cause. He received nitro with EMS which improved his symptoms. In the emergency room, patient's vital signs were unremarkable. Initial laboratory evaluation revealed an unremarkable CBC, normal coagulation studies, an unremarkable chemistry panel. Troponin was negative. COVID-19 testing was negative. Chest x-ray showed an elevated left hemidiaphragm with compressive atelectasis likely of the left lower lobe. EKG showed normal sinus rhythm with no concerning findings indicative of ischemia. Patient's heart score is 4 based on age, history, and risk factors of hypertension, hyperlipidemia, and obesity. Discharge Providers Provider Date of admission: 06/21/20 14:08 Discharge Date: 06/22/20 Primary care physician: Alexandre Kaiser DO Discharge provider: Jessie Conklin MD Summary Hospital Course Discharge Diagnosis: 1. Atypical chest pain 2. Hypertension 3. Hyperlipidemia 4. History of a Evelio fundoplication Hospital Course: Patient was admitted to the hospital for evaluation of chest pain. He had no further chest pain in the hospital. His EKG and cardiac enzymes were negative. Patient underwent a stress test. This showed no evidence of reversible ischemia. Patient was deemed appropriate for discharge and arrangements were made to discharge him home. Status at Discharge Cognitive/behavioral status at discharge: oriented Functional status at discharge: independent ambulation Overall status at discharge: patient is back to baseline Time Spent with Patient Time spent: Less than 30 minutes Exam Vital Signs (past 8 hours): - 06/22/20 11:06 06/22/20 12:20 06/22/20 15:53 Temperature 97.6 F Pulse Rate 73 Respiratory Rate 18 Blood Pressure 134/74 Pulse Oximetry 97 94 95 06/22/20 16:14 Temperature 97.8 F Pulse Rate 81 Respiratory Rate 16 Blood Pressure 120/74 Pulse Oximetry 94 Oxygen Delivery Method Room Air Oxygen Flow Rate 0 Narrative Exam Narrative: Pleasant gentleman in no acute distress Lungs: Clear to auscultation Cardiac exam: Regular rate and rhythm normal S1-S2 Abdomen: Soft nontender nondistended Extremities: No edema Objective Labs Result Diagrams: 06/21/20 11:05 06/22/20 04:54 Labs: Laboratory Results - last 24 hr 06/21/20 06/22/20 06/22/20 19:34 04:54 04:54 Sodium 136 L Potassium 3.9 Chloride 105 Carbon Dioxide 27 BUN 14 Creatinine 0.84 Estimated GFR > 60.0 BUN/Creatinine Ratio 16.7 Glucose 99 Hemoglobin A1c 5.5 Calcium 8.5 Magnesium 2.0 Troponin I < 0.012 Triglycerides 85 Cholesterol 120 L LDL Cholesterol, Calc 70 HDL Cholesterol 33 L TSH 06/22/20 04:54 Sodium Potassium Chloride Carbon Dioxide BUN Creatinine Estimated GFR BUN/Creatinine Ratio Glucose Hemoglobin A1c Calcium Magnesium Troponin I Triglycerides Cholesterol LDL Cholesterol, Calc HDL Cholesterol TSH 2.15 [facility] Medical History Cervical spondylosis without myelopathy (~2012) Chronic headaches Chronic left-sided thoracic back pain Degenerative disc disease Degenerative joint disease of mandible Herniated nucleus pulposus, lumbar HTN (hypertension) Hyperlipidemia Perineal rash in male Seasonal allergic rhinitis Tennis elbow Urinary urgency Surgical History History of cardiac catheterization (2005) History of cholecystectomy (2002) History of hernia repair (2005) History of Myla fundoplication (1999) Family History Father Stroke Mother No problems noted. Family/Other Cancer Social History household members: spouse Smoking Status: Former smoker Tobacco: How many years used: 5 alcohol intake: never substance use type: does not use Discharge Assessment & Plan Assessment and Plan Assessment: Impression 1. Atypical chest pain 2. Hypertension 3. Hyperlipidemia 4. As Plan of Treatment: Discharge Follow-up with Dr. Diaz next week for further evaluation Discharge Plan Discharge Plan Patient Disposition: Home Discharge orders & Medications Prescriptions: New pantoprazole 40 mg Tablet,Delayed Release (Dr/Ec) 40 mg PO 0700 Qty: 30 RF: 0 Continued lisinopril 10 mg tablet 10 mg PO Q DAY Qty: 90 RF: 1 simvastatin 20 mg tablet 20 mg PO HS Qty: 90 RF: 1 fluticasone prp-sod.chl,bicarb 50 mcg- 0.9 % kit,spray suspension and spray 1 ea intranasal BID PRN (Reason: rhinitis) Qty: 1 RF: 3 albuterol sulfate [Ventolin HFA] 90 mcg/actuation HFA aerosol inhaler 2 puff inhalation Q6H PRN (Reason: shortness of breath or wheezing) Qty: 8.5 RF: 1 Follow up/Referrals: Alexandre Kaiser DO [Primary Care Provider] - Discharge Health Status Multidrug resistant organism: No MDRO Diet/Activity/Treatments Diet: Low-sodium Visit Report/Discharge Packet Instructions: DI for Atypical Chest Pain Discharge Data Primary Care Provider: Alexandre Kaiser Attending Provider: Lauro Borja
--- NOTE | 2020-06-22 19:11 | DI.NM.S_ITS ---
DATE OF SERVICE: PROCEDURE: Exercise treadmill stress and rest myocardial perfusion imaging with gating to assess ejection fraction and regional wall motion. DATE OF SERVICE: June 22, 2020 ORDERING PROVIDER: Lauro Borja M.D. INDICATIONS: The patient is a 64-year-old male with atypical chest discomfort. CARDIAC STRESS: The patient was able to exercise for a total of 8 minutes 1 second on a standard Sanjiv protocol suggesting average exercise capacity with an MARIA FERNANDA of 0%. He had a normal hemodynamic response achieving a maximum heart rate of 137 BPM (88% of his predicted maximum). He had no chest discomfort or other anginal symptoms. His resting ECG is normal with normal ST segments. With stress, there were no significant ST-segment shifts or arrhythmias. At 7 minutes of exercise at a heart rate of 131 BPM, 24.6 millicuries of technetium-99m Myoview was injected and he was imaged 15 minutes later using a gated SPECT acquisition protocol. Earlier in the day while at rest, he was injected with 13.5 millicuries of technetium-99m Myoview and imaged 30 minutes later, again using a gated SPECT acquisition protocol. FINDINGS; RAW DATA: There is good myocardial tracer uptake although there is clearly some diaphragmatic attenuation seen both on the stress and the rest images, but predominantly on the former. The lung/heart ratio was normal at 0.31 with a normal TID ratio of 0.70. QUANTITATED GATED SPECT: Post-stress ejection fraction is estimated at 73% without any focal wall motion abnormality and specifically the inferior wall has brisk contractility. The resting ejection fraction is estimated at 72% with a similar contraction pattern and an end-diastolic volume of 135 mL. MYOCARDIAL PERFUSION IMAGING: Post-stress supine images shows a mild perfusion defect throughout the inferior wall, extending into the distal inferolateral wall to the apex in a pattern that would be consistent with diaphragmatic attenuation, supported by its near-complete resolution on the prone images, revealing a normal perfusion pattern. The resting images show a similar perfusion pattern with perhaps subtle, but nonspecific, improvement, particularly in the setting of a normal perfusion pattern on the prone images. IMPRESSION: 1. Probable normal myocardial perfusion study. 2. Mild, predominantly fixed inferior and distal inferolateral perfusion defect that resolves on prone imaging, consistent with diaphragmatic attenuation artifact. There is no compelling evidence for any significant myocardial ischemia. 3. Normal left ventricular systolic function without any focal wall motion abnormality. 4. Average exercise capacity without angina or ECG evidence of ischemia. 5. Compared to his perfusion study of July 12, 2015, an identical perfusion pattern is seen compared to the previous study. His previous study again showed an inferior and inferolateral perfusion defect that resolved on prone images and his ejection fraction was essentially identical. There has been no significant change from the previous exam. Oscar Maloney - OPAL/cory/veronica doc#: [id number]/job#: [id number] dd: 06/22/2020 16:33:00 dt: 06/22/2020 19:00:00 DICTATING MD/COPIES TO: Sang Tolentino MD; Lauro Borja M.D. COPIES MNE: HECTOR;
== END 2020-06-22 18:17 | disposition home or self-care (01) ==
LOC: ED 13:04 → AC 14:09
PROVIDERS: Admitting Provider Internal Medicine; Emergency Provider Emergency Medicine; PCP Family Medicine; Referring Provider Emergency Medicine; Visit Provider Internal Medicine
DX: R07.89 Other chest pain (principal); I10 Essential (primary) hypertension; E78.5 Hyperlipidemia, unspecified; K21.9 Gastro-esophageal reflux disease without esophagitis; E66.9 Obesity, unspecified; Z68.32 Body mass index [BMI] 32.0-32.9, adult; Z98.890 Other specified postprocedural states; Z20.822 Contact with and (suspected) exposure to COVID-19
CPT/HCPCS: 36415; 71045; 78452; 80048; 80053; 80061; 81003; 82550; 82553; 83036; 83690; 83735; 84443; 84484; 85025; 85610; 85730; 87635; 93005; 93017; 93306; 99283; 99284; C9803; G0378; A9502

== ENCOUNTER → 2020-08-09 08:25 | Outpatient (CLI) | payer OTHER, SELFPAY ==
[2020-06-21 14:15] VITALS: BMI 32.0
[2020-08-09 12:10] LABS: COVID19 -Nasal RAPID Negative (Negative)
== END ==
PROVIDERS: PCP Family Medicine; Referring Provider Physician Assistant; Visit Provider Physician Assistant
DX: Z01.812 Encounter for preprocedural laboratory examination (principal); Z20.822 Contact with and (suspected) exposure to COVID-19
CPT/HCPCS: 87635

== ENCOUNTER 2020-08-11 12:55 | Day surgery (SDC) | payer OTHER, SELFPAY ==
[2020-06-21 14:15] VITALS: BMI 32.0
[2020-08-11] VITALS (8 sets, daily range): BP systolic 114–136; BP diastolic 66–81; PULSE 70–83; RESP 13–20; TEMP 36.4–36.7; O2SAT 90–97; BMI 33.7
--- NOTE | 2020-08-11 | PATH_ITS ---
[facility] Accession Number: [id number] . 01 Material submitted: . esophagus - ESOPHAGEAL . 01 Clinical history: . A: R/O ROMAN'S . 02 Diagnosis: Esophagus, Biopsy: Squamocolumnar junctional mucosa with mild active inflammation and reactive parakeratosis. Negative for intestinal metaplasia. Negative for dysplasia and malignancy. [facility] 08/17/2020 1623 Local . 02 Electronically signed: . Julienne Camara MD, Pathologist NPI- [id number] . 01 Gross description: . ESOPHAGEAL: Received in formalin are 2 fragment(s) of landa, soft tissue measuring 0.5 x 0.2 x 0.1 cm to 0.3 x 0.2 x 0.1 cm submitted entirely in 1 cassette(s) /WILLIAMS 08/12/2020 0551 Local . 02 Microscopic: . An AB/PAS stain was performed to evaluate for intestinal metaplasia and fungal organisms, and is negative for both intestinal metaplasia and fungal organisms, respectively. The control stain showed appropriate reactivity. . * This test was developed and its performance characteristics determined by [facility]. It has not been cleared or approved by the U.S. Food and Drug Administration. The FDA has determined that such clearance or approval is not necessary. This test is used for clinical purposes. It should not be regarded as investigational or for research. . 02 Pathologist provided ICD-10: R10.13 . 02 CPT . 826871, 677190 Performed at: 01 [facility] [address] [place] [address], [place], [place] [id number] MD Maverick Bland MD Phone: [phone] Performed at: 02 [facility] [address] [place], [place] [id number] MD Julienne Camara MD Phone: [phone]
[2020-08-11] MEDS: SODIUM CHLORIDE 0.9% 1,000 ML 84 ML IV (13:29)
--- NOTE | 2020-08-11 13:29 | PM.PREOP ---
Pre-operative Note COVID-19 COVID-19 status: Negative Interval Note History & Physical reviewed/Exam performed by Physician: Yes Changes to H&P: No ASA Class (for procedural sedation): II
--- NOTE | 2020-08-11 13:30 | PM.OP.ENDO ---
Operative Date/Time/Diagnoses Date of procedure: 08/11/20 Procedure & Clinicians Study performed: EGD Same procedure as scheduled: Yes Indications: Intermittent chest pain status post fundoplication. Surgeon: Marina Powell Procedure Notes Procedure in detail: After informed consent was obtained patient was placed in left lateral decubitus position. The video upper scope was placed into the oropharynx and with the patient's help swelled into the esophagus. The esophagus stomach and duodenum were carefully examined. On withdrawal retroflexed view the GE junction was performed. The scope was removed. The patient tolerated procedure well. Blood loss none Complications none Sedation Total sedation time 10 minutes Fentanyl 100 micro g Versed 6 mg IV titration Findings 1. Normal esophagus with the exception of 1 1 cm tongue above the level of the GB folds. This was biopsied x2 2. Intact fundoplication. There may be of small amount of a paraesophageal component on 1 aspect. 3. Normal distal stomach and duodenal bulb and sweep Patient should have an upper GI performed and then follow-up at least by telehealth phone call with Xiomara Hatch for the GI are provider of his choice.
[2020-08-11] MEDS: fentaNYL 250 MCG/5 ML INJ IV (14:06)
[2020-08-11] MEDS: MIDAZOLAM 5 MG/5 ML VIAL IV (14:06)
== END 2020-08-11 15:09 | disposition home or self-care (01) ==
PROVIDERS: PCP Family Medicine; Referring Provider Internal Medicine Gastroenterology; Visit Provider Internal Medicine Gastroenterology
PROC: 0DJ08ZZ Inspection of Upper Intestinal Tract, Via Natural or Artificial Opening Endoscopic (ICD-10-PCS; CPT 43235; principal; 2020-08-11 14:00)
DX: R11.10 Vomiting, unspecified (principal); R07.9 Chest pain, unspecified; Z98.890 Other specified postprocedural states
CPT/HCPCS: 43235; J2250; J3010

== ENCOUNTER → 2020-09-08 09:52 | Outpatient (CLI) | payer OTHER, SELFPAY ==
[2020-06-21 14:15] VITALS: BMI 32.0
--- NOTE | 2020-09-08 | DI.RAD.S_ITS ---
PROCEDURE: FL UPPER GI W AIR INDICATIONS: Vomiting, unspecified COMPARISON: None. FINDINGS: KUB: Preprocedural newspaper illustrator film demonstrates a normal bowel gas pattern. No suspicious abdominal calcifications. Visualized solid organ contours appear normal. Bony structures appear unremarkable. Esophagus: Esophageal mucosa is normal on air-contrast views. On single-contrast views, there is normal esophageal peristalsis. No strictures, extrinsic mass effects, or diverticula. No hiatal hernia. Mild gastroesophageal reflux is seen with contrast reflux to distal 1/3 of the esophageal lumen. There is normal transit of a calibrated barium tablet through the esophagus. Stomach: The stomach is normally distensible, with normal rugal fold thickness. No mucosal masses or ulcers. Pylorus and duodenal bulb appear normal in morphology. Duodenal folds are normal in thickness as well. IMPRESSION: Mild gastroesophageal reflux is seen. Otherwise unremarkable double-contrast upper GI series. Dictated by: Chriss Daniel M.D. on 09/08/2020 at 11:38 Approved by: Chriss Daniel M.D. on 09/08/2020 at 11:39
== END ==
PROVIDERS: PCP Family Medicine; Referring Provider Internal Medicine Gastroenterology; Visit Provider Internal Medicine Gastroenterology
DX: R11.10 Vomiting, unspecified (principal); R07.9 Chest pain, unspecified; K21.9 Gastro-esophageal reflux disease without esophagitis; Z98.890 Other specified postprocedural states
CPT/HCPCS: 74246

== ENCOUNTER → 2020-11-23 10:31 | Outpatient (CLI) | payer MEDICARE, OTHER, SELFPAY ==
[2020-06-21 14:15] VITALS: BMI 32.0
[2020-11-23 11:28] LABS: Add Manual Diff / Slide Review NO; Basophils Absolute Auto 0 /uL (0-100); Basophils Percent Auto 0.5 % (0-2); Eosinophils Absolute Auto 100 /uL (0-450); Eosinophils Percent Auto 1.4 % (2-4); Hematocrit 46.3 % (41-53); Hemoglobin 15.6 g/dL (13.5-17.5); Lymphocytes Absolute Auto 1600 /uL (1100-4500); Lymphocytes Percent Auto 31.1 % (25-40); Mean Corpuscular HGB Conc 33.7 % (30-36); Mean Corpuscular Hemoglobin 30.6 PG (26-34); Mean Corpuscular Volume 90.6 fL (80-100); Monocytes Absolute Auto 500 /uL (0-900); Monocytes Percent Auto 10.3 % (3-14); Neutrophils Absolute Auto 2900 /uL (1500-7000); Neutrophils Percent Auto 56.7 % (50-75); Platelet Count 227 X10^3/uL (150-400); Red Blood Cell Count 5.11 X10^6/uL (4.5-5.9); White Blood Cell Count 5.1 X10^3/uL (4.5-11.0)
[2020-11-23 12:38] LABS: Alanine Aminotransferase 23 IU/L (<50); Albumin 4.3 g/dL (3.5-5.0); Albumin Globulin Ratio 1.5 (1.0-2.8); Alkaline Phosphatase 62 U/L (38-126); Aspartate Aminotransferase 26 IU/L (17-59); BUN Creatinine Ratio 14.6 (6-22); Bilirubin Total 1.2 mg/dL (0.2-1.3); Blood Urea Nitrogen 13 mg/dL (9-20); Calcium 9.1 mg/dL (8.4-10.2); Carbon Dioxide 28 mmol/L (22-32); Chloride 102 mmol/L (98-107); Cholesterol 142 mg/dL (140-199); Estimated Glomerular Filt Rate > 60.0 mL/min (>60); Globulin 2.8 g/dL (1.7-4.1); Glucose 96 mg/dL (80-110); HDL Cholesterol 50 mg/dL (40-60); HEMOLYSIS 49 (0-50); LDL Cholesterol Calculated 76 mg/dL (<100); Potassium 4.4 mmol/L (3.4-5.1); Sodium 140 mmol/L (137-145); Total Protein 7.1 g/dL (6.3-8.2); Triglycerides 79 mg/dL (35-150)
[2020-11-23 13:00] LABS: Prostate Specific Antigen Scrn 1.84 ng/mL (0.1-4.0)
== END ==
PROVIDERS: PCP Family Medicine; Referring Provider Family Medicine; Visit Provider Family Medicine
DX: R39.9 Unspecified symptoms and signs involving the genitourinary system (principal); E78.5 Hyperlipidemia, unspecified; Z12.5 Encounter for screening for malignant neoplasm of prostate; I10 Essential (primary) hypertension
CPT/HCPCS: 36415; 80053; 80061; 85025; G0103

== ENCOUNTER → 2021-03-13 13:03 | Outpatient (CLI) | payer MEDICARE, OTHER, SELFPAY ==
[2020-06-21 14:15] VITALS: BMI 32.0
[2021-03-13 13:37] LABS: COVID19 -Nasal RAPID POSITIVE (Negative)
== END ==
PROVIDERS: PCP Family Medicine; Visit Provider Nurse Practitioner Family
DX: Z20.822 Contact with and (suspected) exposure to COVID-19 (principal)
CPT/HCPCS: 87635

== ENCOUNTER → 2021-06-18 07:57 | Outpatient (CLI) | payer MEDICARE, OTHER, SELFPAY ==
[2020-06-21 14:15] VITALS: BMI 32.0
[2021-06-18 09:38] LABS: Add Manual Diff / Slide Review NO; Basophils Absolute Auto 0 /uL (0-100); Basophils Percent Auto 0.4 % (0-2); Eosinophils Absolute Auto 100 /uL (0-450); Eosinophils Percent Auto 1.6 % (2-4); Hematocrit 46.6 % (41-53); Hemoglobin 16.1 g/dL (13.5-17.5); Lymphocytes Absolute Auto 1500 /uL (1100-4500); Lymphocytes Percent Auto 32.6 % (25-40); Mean Corpuscular HGB Conc 34.6 % (30-36); Mean Corpuscular Hemoglobin 31.3 PG (26-34); Mean Corpuscular Volume 90.5 fL (80-100); Monocytes Absolute Auto 400 /uL (0-900); Monocytes Percent Auto 9.6 % (3-14); Neutrophils Absolute Auto 2500 /uL (1500-7000); Neutrophils Percent Auto 55.8 % (50-75); Platelet Count 209 X10^3/uL (150-400); Red Blood Cell Count 5.15 X10^6/uL (4.5-5.9); Red Cell Distribution Width 12.8 % (11.6-14.8); White Blood Cell Count 4.5 X10^3/uL (4.5-11.0)
[2021-06-18 10:04] LABS: Alanine Aminotransferase 20 IU/L (<50); Albumin 4.1 g/dL (3.5-5.0); Albumin Globulin Ratio 1.4 (1.0-2.8); Alkaline Phosphatase 57 U/L (38-126); Aspartate Aminotransferase 27 IU/L (17-59); BUN Creatinine Ratio 13.5 (6-22); Bilirubin Total 1.2 mg/dL (0.2-1.3); Blood Urea Nitrogen 14 mg/dL (9-20); Calcium 8.7 mg/dL (8.4-10.2); Carbon Dioxide 29 mmol/L (22-32); Chloride 104 mmol/L (98-107); Cholesterol 148 mg/dL (140-199); Estimated Glomerular Filt Rate > 60 mL/min (>60); Globulin 2.9 g/dL (1.7-4.1); Glucose 93 mg/dL (80-110); HDL Cholesterol 46 mg/dL (40-60); HEMOLYSIS < 15 (0-50); LDL Cholesterol Calculated 85 mg/dL (<100); Potassium 3.9 mmol/L (3.4-5.1); Sodium 140 mmol/L (137-145); Triglycerides 83 mg/dL (35-150)
[2021-06-18 10:32] LABS: Prostate Specific Antigen 1.86 ng/mL (0.10-4.00)
[2021-06-18 10:39] LABS: Hemoglobin A1C% w Est Avg Glu 5.6 % (4.0-6.0)
== END ==
PROVIDERS: PCP Family Medicine; Referring Provider Family Medicine; Visit Provider Family Medicine
DX: E78.5 Hyperlipidemia, unspecified (principal); R39.9 Unspecified symptoms and signs involving the genitourinary system; I10 Essential (primary) hypertension; Z12.5 Encounter for screening for malignant neoplasm of prostate
CPT/HCPCS: 36415; 80053; 80061; 83036; 84153; 85025; G0103

== ENCOUNTER → 2021-12-09 12:06 | Outpatient (CLI) | payer MEDICARE, OTHER, SELFPAY ==
[2020-06-21 14:15] VITALS: BMI 32.0
[2021-12-09 12:29] LABS: Add Manual Diff / Slide Review NO; Basophils Absolute Auto 0 /uL (0-100); Basophils Percent Auto 0.6 % (0-2); Eosinophils Absolute Auto 100 /uL (0-450); Eosinophils Percent Auto 1.3 % (2-4); Hematocrit 45.7 % (41-53); Hemoglobin 15.9 g/dL (13.5-17.5); Lymphocytes Absolute Auto 1600 /uL (1100-4500); Lymphocytes Percent Auto 26.6 % (25-40); Mean Corpuscular HGB Conc 34.8 % (30-36); Mean Corpuscular Hemoglobin 31.3 PG (26-34); Mean Corpuscular Volume 89.9 fL (80-100); Monocytes Absolute Auto 600 /uL (0-900); Monocytes Percent Auto 9.9 % (3-14); Neutrophils Absolute Auto 3700 /uL (1500-7000); Neutrophils Percent Auto 61.6 % (50-75); Platelet Count 210 X10^3/uL (150-400); Red Blood Cell Count 5.08 X10^6/uL (4.5-5.9); Red Cell Distribution Width 12.8 % (11.6-14.8); White Blood Cell Count 5.9 X10^3/uL (4.5-11.0)
[2021-12-09 12:53] LABS: Alanine Aminotransferase 23 IU/L (<50); Albumin Globulin Ratio 1.3 (1.0-2.8); Alkaline Phosphatase 63 U/L (38-126); Aspartate Aminotransferase 22 IU/L (17-59); BUN Creatinine Ratio 12.6 (6-22); Bilirubin Total 0.8 mg/dL (0.2-1.3); Blood Urea Nitrogen 11 mg/dL (9-20); Calcium 8.5 mg/dL (8.4-10.2); Carbon Dioxide 28 mmol/L (22-32); Chloride 105 mmol/L (98-107); Cholesterol 146 mg/dL (140-199); Estimated Glomerular Filt Rate > 60 mL/min (>60); Glucose 114 mg/dL (80-110); HDL Cholesterol 41 mg/dL (40-60); HEMOLYSIS < 15 (0-50); LDL Cholesterol Calculated 83 mg/dL (<100); Potassium 3.8 mmol/L (3.4-5.1); Sodium 141 mmol/L (137-145); Triglycerides 110 mg/dL (35-150)
== END ==
PROVIDERS: PCP Family Medicine; Referring Provider Family Medicine; Visit Provider Family Medicine
DX: E78.5 Hyperlipidemia, unspecified (principal); I10 Essential (primary) hypertension; R39.9 Unspecified symptoms and signs involving the genitourinary system
CPT/HCPCS: 36415; 80053; 80061; 85025

== ENCOUNTER → 2022-04-20 10:41 | Outpatient (CLI) | payer MEDICARE, OTHER, SELFPAY ==
[2020-06-21 14:15] VITALS: BMI 32.0
[2022-04-20 12:09] LABS: Hemoglobin A1C% w Est Avg Glu 5.5 % (4.0-6.0)
[2022-04-20 12:16] LABS: Alanine Aminotransferase 25 IU/L (<50); Albumin 4.3 g/dL (3.5-5.0); Albumin Globulin Ratio 1.5 (1.0-2.8); Alkaline Phosphatase 71 U/L (38-126); Aspartate Aminotransferase 23 IU/L (17-59); BUN Creatinine Ratio 12.3 (6-22); Bilirubin Total 0.8 mg/dL (0.2-1.3); Blood Urea Nitrogen 10 mg/dL (9-20); Calcium 8.9 mg/dL (8.4-10.2); Carbon Dioxide 28 mmol/L (22-32); Chloride 103 mmol/L (98-107); Estimated Glomerular Filt Rate > 60 mL/min (>60); Globulin 2.8 g/dL (1.7-4.1); Glucose 97 mg/dL (80-110); HEMOLYSIS < 15 (0-50); Potassium 4.6 mmol/L (3.4-5.1); Sodium 138 mmol/L (137-145); Total Protein 7.1 g/dL (6.3-8.2)
[2022-04-20 13:41] LABS: Creatinine Urine Random 22.8 mg/dL
[2022-04-20 13:46] LABS: Microalbumin Urine Random < 0.6 mg/dL (0-1.6)
== END ==
PROVIDERS: PCP Family Medicine; Referring Provider Family Medicine; Visit Provider Family Medicine
DX: R73.01 Impaired fasting glucose (principal); E78.5 Hyperlipidemia, unspecified; I10 Essential (primary) hypertension
CPT/HCPCS: 80053; 82043; 82570; 83036

== ENCOUNTER → 2022-05-11 08:28 | Outpatient (CLI) | payer MEDICARE, OTHER, SELFPAY ==
[2020-06-21 14:15] VITALS: BMI 32.0
--- NOTE | 2022-05-11 08:29 | DI.US.S_ITS ---
PROCEDURE: US SCROTUM INDICATIONS: mass in scrotum TECHNIQUE: Real-time scanning was performed of the scrotum and testicles, with image documentation. Color and pulse Doppler interrogation was performed of both testicles. COMPARISON: None. FINDINGS: Right: Testicle is normal in size at 5.1 x 3.1 x 2.8 cm, and homogenous in echotexture. Epididymis is normal in overall size and morphology. Small hydrocele with internal septations and debris. No varicocele. Overlying scrotal skin is normal in thickness. Small scrotal herminia. Left: Testicle is normal in size at 3.6 x 2.8 x 3.3 cm, and homogeneous in echotexture. Epididymis is normal in overall size and morphology, with an epididymal head cyst measuring 0.7 x 0.5 x 0.7 centimeter. Small hydrocele with internal septations and debris. No varicocele. Overlying scrotal skin is normal in thickness. Doppler: Color and pulse Doppler demonstrate normal and symmetric arterial flow in both testicles. IMPRESSION: 1. Small bilateral hydroceles with internal septations and debris. This is most likely post infectious. 2. 0.7 centimeter benign epididymal head cyst on the left. Dictated by: Ron Schroeder M.D. on 05/11/2022 at 11:56 Approved by: Ron Schroeder M.D. on 05/11/2022 at 11:59
== END ==
PROVIDERS: PCP Family Medicine; Referring Provider Family Medicine; Visit Provider Family Medicine
DX: N50.89 Other specified disorders of the male genital organs (principal); N43.3 Hydrocele, unspecified; N50.3 Cyst of epididymis
CPT/HCPCS: 76870; 93975

== ENCOUNTER → 2022-10-20 08:26 | Outpatient (CLI) | payer MEDICARE, OTHER, SELFPAY ==
[2022-05-11 14:06] VITALS: BMI 32.0
[2022-10-20 09:17] LABS: Add Manual Diff / Slide Review NO; Basophils Absolute Auto 0 /uL (0-100); Basophils Percent Auto 0.4 % (0-2); Eosinophils Absolute Auto 100 /uL (0-450); Eosinophils Percent Auto 1.7 % (2-4); Hematocrit 45.3 % (41-53); Hemoglobin 16.4 g/dL (13.5-17.5); Lymphocytes Absolute Auto 1600 /uL (1100-4500); Lymphocytes Percent Auto 31.7 % (25-40); Mean Corpuscular HGB Conc 36.1 % (30-36); Mean Corpuscular Hemoglobin 32.2 PG (26-34); Mean Corpuscular Volume 89.1 fL (80-100); Monocytes Absolute Auto 500 /uL (0-900); Monocytes Percent Auto 9.8 % (3-14); Neutrophils Absolute Auto 2900 /uL (1500-7000); Neutrophils Percent Auto 56.4 % (50-75); Platelet Count 220 X10^3/uL (150-400); Red Blood Cell Count 5.08 X10^6/uL (4.5-5.9); Red Cell Distribution Width 12.8 % (11.6-14.8); White Blood Cell Count 5.2 X10^3/uL (4.5-11.0)
[2022-10-20 09:29] LABS: Alanine Aminotransferase 30 IU/L (<50); Albumin Globulin Ratio 1.4 (1.0-2.8); Alkaline Phosphatase 57 U/L (38-126); Aspartate Aminotransferase 26 IU/L (17-59); BUN Creatinine Ratio 16.5 (6-22); Bilirubin Total 1.2 mg/dL (0.2-1.3); Blood Urea Nitrogen 15 mg/dL (9-20); Calcium 8.7 mg/dL (8.4-10.2); Carbon Dioxide 26 mmol/L (22-32); Chloride 102 mmol/L (98-107); Cholesterol 157 mg/dL (140-199); Estimated Glomerular Filt Rate > 60 mL/min (>60); Globulin 2.8 g/dL (1.7-4.1); Glucose 99 mg/dL (80-110); HDL Cholesterol 51 mg/dL (40-60); HEMOLYSIS < 15 (0-50); LDL Cholesterol Calculated 84 mg/dL (<100); Potassium 4.2 mmol/L (3.4-5.1); Sodium 137 mmol/L (137-145); Total Protein 6.8 g/dL (6.3-8.2); Triglycerides 111 mg/dL (35-150)
== END ==
PROVIDERS: PCP Family Medicine; Referring Provider Family Medicine; Visit Provider Family Medicine
DX: E78.5 Hyperlipidemia, unspecified (principal); I10 Essential (primary) hypertension
CPT/HCPCS: 36415; 80053; 80061; 85025

== ENCOUNTER → 2022-11-22 10:57 | Outpatient (CLI) | payer MEDICARE, OTHER, SELFPAY ==
[2022-05-11 14:06] VITALS: BMI 32.0
[2022-11-22 13:23] LABS: Prostate Specific Antigen 1.92 ng/mL (0.10-4.00)
== END ==
PROVIDERS: PCP Family Medicine; Referring Provider Specialist; Visit Provider Specialist
DX: N40.1 Benign prostatic hyperplasia with lower urinary tract symptoms (principal); N13.8 Other obstructive and reflux uropathy
CPT/HCPCS: 36415; 84153

== ENCOUNTER 2022-12-29 16:26 | Emergency (ER) | payer MEDICARE, OTHER, SELFPAY ==
[2022-05-11 14:06] VITALS: BMI 32.0
--- NOTE | 2022-12-29 16:31 | ED_ITS ---
HPI - Chest Pain <Garrett Gamino PA-C - Last Filed: 12/29/22 17:50> General Chief Complaint: Syncope Stated Complaint: states almost passed out x 3 today Time Seen by Provider: 12/29/22 16:30 History of Present Illness HPI narrative: This is a 67-year-old male presents to the emergency department due to 3 episodes of near-syncope while working in his garage. He states that he was working in his garage when he began to feel lightheaded and felt his ?head pounding?. He would not actually lose conscious. He states that he went into his house to rest and try to working in the garage again and felt it episode of near syncope which happened 1 more time for this as well. States that he has chronic back pain that has worsened over the last couple of weeks. Related Data Previous Rx's Medication Instructions Recorded finasteride 5 mg tablet 5 mg PO DAILY #90 tabs 01/06/22 gabapentin 100 mg capsule 400 mg (4 x 100 mg) PO TID #240 04/27/22 caps tamsulosin 0.4 mg capsule 0.8 mg (2 x 0.4 mg) PO DAILY #180 10/25/22 caps simvastatin 20 mg tablet See Rx Instructions .Route 11/23/22 .COMPLEX #90 tabs lisinopril 10 mg tablet See Rx Instructions .Route 12/04/22 .COMPLEX #90 tabs Allergies Allergy/AdvReac Type Severity Reaction Status Date / Time aspirin [ASPIRIN] Allergy Unknown Hives Verified 12/13/22 13:51 Review of Systems <Garrett Gamino PA-C - Last Filed: 12/29/22 17:50> Review of Systems Narrative: GENERAL: Denies chills, fatigue, malaise, fever, sweats. HEENT: Denies sinus pain, ear pain, sore throat, difficulty swallowing, dizziness. RESPIRATORY: Denies dyspnea, cough, wheezing, hemoptysis, sputum. CARDIOVASCULAR: Reports chronic chest pain secondary to GERD Denies acute chest pain, palpitations, orthopnea, edema, GASTROINTESTINAL: Denies nausea, vomiting, abdominal pain, diarrhea, constipation, melena. : Denies dysuria, frequency, incontinence, hematuria, urinary retention. MUSCULOSKELETAL: Reports acute on chronic back pain, denies weakness, joint pain, or bony pain SKIN: Denies rash, skin lesions, or other NEUROLOGIC: Reports lightheadedness, Denies weakness, headache, numbness, change in speech, confusion, seizures, incoordination. PSYCHIATRIC: No concerning psychosocial issues. 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 Cervical radiculopathy Acute neck pain Acute thoracic back pain Mass, scrotum Elevated fasting glucose Constipation Welcome to Medicare preventive visit Lower urinary tract symptoms (LUTS) Atypical chest pain Gastroesophageal reflux disease Seasonal allergic rhinitis Perineal rash in male Urinary urgency Chronic left-sided thoracic back pain Herniated nucleus pulposus, lumbar Cervical spondylosis without myelopathy (~2012) Chronic headaches 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 Degenerative disc disease Hyperlipidemia HTN (hypertension) Surgical History History of laparoscopy History of Myla fundoplication History of hernia repair (2005) History of cholecystectomy (2002) History of Myla fundoplication (1999) History of cardiac catheterization (2005) Family History Father Stroke Hypertension Diabetes mellitus Mother Cancer Hypertension Diabetes mellitus Family/Other Cancer Social History marital status: number of children: 2 household members: spouse Smoking Status: Former smoker Tobacco: How many years used: 5 alcohol intake: never substance use type: does not use Type(s) of exercise: walking frequency: daily Smoking Status: Former smoker tobacco type: smokeless tobacco alcohol intake frequency: holidays/special occasions only Substance Use Type: does not use Exam <Garrett Gamino PA-C - Last Filed: 12/29/22 17:50> Narrative Exam Narrative: GENERAL: Well-developed patient, in mild distress. HEAD: Atraumatic. Normocephalic. EYES: Pupils equal round and reactive. Extraocular motions intact. No scleral icterus. No injection or drainage. ENT: Nose without bleeding, purulent drainage. Throat without erythema, tonsillar hypertrophy or exudate. Airway patent. NECK: Trachea midline. Non tender CARDIOVASCULAR: Regular rate and rhythm without murmurs, gallops, or rubs. RESPIRATORY: Clear to auscultation. Breath sounds equal bilaterally. No wheezes, rales, or rhonchi. GASTROINTESTINAL: Abdomen soft, non-tender, nondistended. EXTREMITIES: No edema or joint tenderness. BACK: Nontender without deformity or crepitance. No flank tenderness. NEURO: AOx3. Cranial nerves 2-12 intact SKIN: No rash or erythema of visible areas Initial Vital Signs Initial Vital Signs: Vital Signs Pulse Rate 81 12/29/22 16:49 Respiratory Rate 23 12/29/22 16:49 Pulse Oximetry 94 12/29/22 16:49 <Beatriz Fields MD - Last Filed: 12/29/22 17:55> Initial Vital Signs Initial Vital Signs: Vital Signs Pulse Rate 81 12/29/22 16:49 Respiratory Rate 23 12/29/22 16:49 Pulse Oximetry 94 12/29/22 16:49 Course <Garrett Gamino PA-C - Last Filed: 12/29/22 17:50> Orders Ordered: ED Orders 12/29/22 16:40 XR chest 2V Stat 12/29/22 16:42 CT head/brain wo con Stat EKG-12 Lead Stat 12/29/22 16:58 Complete Blood Count AUTO DIFF Stat Comprehensive Metabolic Panel Stat D Dimer Stat Troponin & CK Cardiac Panel Stat Vital Signs Vital signs: Vital Signs - 8 hr 12/29/22 16:49 12/29/22 16:53 12/29/22 17:15 Temperature 98.2 F Pulse Rate 81 82 81 Respiratory Rate 23 16 33 H Blood Pressure 136/66 Pulse Oximetry 94 95 95 Oxygen Delivery Method Room Air 12/29/22 17:30 Temperature Pulse Rate 80 Respiratory Rate 29 H Blood Pressure Pulse Oximetry 93 Oxygen Delivery Method <Beatriz Fields MD - Last Filed: 12/29/22 17:55> Orders Ordered: ED Orders 12/29/22 16:40 XR chest 2V Stat 12/29/22 16:42 CT head/brain wo con Stat EKG-12 Lead Stat 12/29/22 16:58 Complete Blood Count AUTO DIFF Stat Comprehensive Metabolic Panel Stat D Dimer Stat Troponin & CK Cardiac Panel Stat Vital Signs Vital signs: Vital Signs - 8 hr 12/29/22 16:49 12/29/22 16:53 12/29/22 17:15 Temperature 98.2 F Pulse Rate 81 82 81 Respiratory Rate 23 16 33 H Blood Pressure 136/66 Pulse Oximetry 94 95 95 Oxygen Delivery Method Room Air 12/29/22 17:30 Temperature Pulse Rate 80 Respiratory Rate 29 H Blood Pressure Pulse Oximetry 93 Oxygen Delivery Method MDM - Chest Pain <Garrett Gamino PA-C - Last Filed: 12/29/22 17:50> Lab Data 12/29/22 16:58 12/29/22 16:58 Labs: Lab Results 12/29/22 Range/Units 16:58 WBC 7.9 (4.5-11.0) X10^3/uL RBC 5.05 (4.5-5.9) X10^6/uL Hgb 15.8 (13.5-17.5) g/dL Hct 45.3 (41-53) % MCV 89.8 (80-100) fL MCH 31.2 (26-34) PG MCHC 34.8 (30-36) % RDW 12.8 (11.6-14.8) % Plt Count 218 (150-400) X10^3/uL Neut % (Auto) 71.3 (50-75) % Lymph % (Auto) 19.1 L (25-40) % [place] % (Auto) 8.5 (3-14) % Eos % (Auto) 0.8 L (2-4) % Baso % (Auto) 0.3 (0-2) % Neut # (Auto) 5600 (1596-7220) /uL Lymph # (Auto) 1500 (9983-0886) /uL [place] # (Auto) 700 (0-900) /uL Eos # (Auto) 100 (0-450) /uL Baso # (Auto) 0 (0-100) /uL D-Dimer 424 (<500) ng/ml Sodium 138 (137-145) mmol/L Potassium 3.6 (3.4-5.1) mmol/L Chloride 104 (98-107) mmol/L Carbon Dioxide 26 (22-32) mmol/L BUN 15 (9-20) mg/dL Creatinine 1.07 (0.66-1.25) mg/dL Estimated GFR > 60 (>60) mL/min BUN/Creatinine Ratio 14.0 (6-22) Glucose 90 (80-110) mg/dL Calcium 9.1 (8.4-10.2) mg/dL Total Bilirubin 1.0 (0.2-1.3) mg/dL AST 20 (17-59) IU/L ALT 22 (<50) IU/L Alkaline Phosphatase 52 (38-126) U/L Total Creatine Kinase 50 L (55-170) U/L Troponin I < 0.012 (0.01-0.034) ng/mL Total Protein 6.7 (6.3-8.2) g/dL Albumin 3.9 (3.5-5.0) g/dL Globulin 2.8 (1.7-4.1) g/dL Albumin/Globulin Ratio 1.4 (1.0-2.8) Point of Care Testing Glucose POC [address] scan - head: Radiologist's Impression: [address] [address] [address] Scan Report Signed Patient: Oscar Maloney MR#: [id number] : 1955 Acct:[id number] Age/Sex: 67 / M Date of Service: 12/29/22 Loc: ED Accession Number: [id number] Procedure: CT head/brain wo con Ordering Provider: Garrett Gamino P.A-C PROCEDURE: CT HEAD/BRAIN WO CON INDICATIONS: Near syncope TECHNIQUE: Noncontrast 4.5 mm thick angled axial sections acquired from the foramen magnum to the vertex, with coronal and sagittal reformats. For radiation dose reduction, the following was used: automated exposure control, adjustment of mA and/or kV according to patient size. COMPARISON: None. FINDINGS: Image quality: Excellent. CSF spaces: Basal cisterns are patent. No extra-axial fluid collections. Ventricles are normal in size and shape. Brain: No midline shift. No intracranial masses or hemorrhage. Rothman-white matter interface is normal. Skull and face: Calvarium and visualized facial bones are intact, without suspicious lesions. Sinuses: Visualized sinuses and mastoids are clear. IMPRESSION: No acute intracranial abnormality. Approved by: Levon Brown M.D. on 12/29/2022 at 17:28 Chest x-ray: Radiologist's Impression: [address] [address] XRay Report Signed Patient: Oscar Maloney MR#: [id number] : 1955 Acct:[id number] Age/Sex: 67 / M Date of Service: 12/29/22 Loc: ED Accession Number: [id number] Procedure: XR chest 2V Ordering Provider: Garrett Gamino P.A-C PROCEDURE: XR CHEST 2V INDICATIONS: CP TECHNIQUE: 2 views of the chest were acquired. COMPARISON: [facility], , XR CHEST 1V, 06/21/2020, 10:53. FINDINGS: Surgical changes and devices: None. Lungs and pleura: Lungs are clear. No pleural effusions or pneumothorax. Mediastinum: Mediastinal contours are normal. Heart size is normal. Bones and chest wall: No suspicious bony abnormalities. Soft tissues appear unremarkable. IMPRESSION: No acute cardiopulmonary abnormality is seen. Approved by: Levon Brown M.D. on 12/29/2022 at 17:28 ECG Data Interpretation: EKG is normal sinus rhythm rate 84 and free of any signs of ischemia or ectopy. No ST segmental elevation or depression. No T wave inversions MDM Narrative Medical decision making narrative: MDM * differential diagnosis includes but not limited to CVA, TIA, ACS, dehydration * Prior records reviewed: Patient was seen here 2 years ago for left-sided chest discomfort. History of chronic headaches, hypertension. History of cardiac catheterization in 2005. History cholecystectomy in 2002. Patient has a heart score of 4. Chest x-ray and EKG unremarkable. Labs unremarkable. Patient was admitted to the hospital for further risk stratification. Patient underwent a stress test while hospitalized which showed no evidence of reversible ischemia. Patient was eventually discharged. * My lab interpretation: CMP and CBC within normal limits. D-dimer unremarkable. Troponin within normal limits. * My imgaing interpretation: Chest x-ray and CT head unremarkable. * Clinical Decision Rules/Scores evaluated: None * Independent discussions with: None ED Course: This is a 67 yo male presenting to the emergency department due to three episodes of near syncope earlier this afternoon. He denied acute CP, but did say he has some chronic CP 2/2 GERD. Also reported chronic skeletal back pain. Thoracic aneurysm on differential, but vitals WNL, pt had spontaneous improvement of pain, and negative D-dimer. Cardiac workup unremarkable. Labwork unremarkable. Pt began feeling much better at rest. Suspect vasovagal in nature. Recommended rest and hydration. CT head unremarkable as well. Shared Decision Making: Discussed plan with the patient who is comfortable with the plan. Social Considerations: None Disposition: Discharged home <Beatriz Fields MD - Last Filed: 12/29/22 17:55> Lab Data Labs: Lab Results 12/29/22 Range/Units 16:58 WBC 7.9 (4.5-11.0) X10^3/uL RBC 5.05 (4.5-5.9) X10^6/uL Hgb 15.8 (13.5-17.5) g/dL Hct 45.3 (41-53) % MCV 89.8 (80-100) fL MCH 31.2 (26-34) PG MCHC 34.8 (30-36) % RDW 12.8 (11.6-14.8) % Plt Count 218 (150-400) X10^3/uL Neut % (Auto) 71.3 (50-75) % Lymph % (Auto) 19.1 L (25-40) % [place] % (Auto) 8.5 (3-14) % Eos % (Auto) 0.8 L (2-4) % Baso % (Auto) 0.3 (0-2) % Neut # (Auto) 5600 (9274-1691) /uL Lymph # (Auto) 1500 (2198-4027) /uL [place] # (Auto) 700 (0-900) /uL Eos # (Auto) 100 (0-450) /uL Baso # (Auto) 0 (0-100) /uL D-Dimer 424 (<500) ng/ml Sodium 138 (137-145) mmol/L Potassium 3.6 (3.4-5.1) mmol/L Chloride 104 (98-107) mmol/L Carbon Dioxide 26 (22-32) mmol/L BUN 15 (9-20) mg/dL Creatinine 1.07 (0.66-1.25) mg/dL Estimated GFR > 60 (>60) mL/min BUN/Creatinine Ratio 14.0 (6-22) Glucose 90 (80-110) mg/dL Calcium 9.1 (8.4-10.2) mg/dL Total Bilirubin 1.0 (0.2-1.3) mg/dL AST 20 (17-59) IU/L ALT 22 (<50) IU/L Alkaline Phosphatase 52 (38-126) U/L Total Creatine Kinase 50 L (55-170) U/L Troponin I < 0.012 (0.01-0.034) ng/mL Total Protein 6.7 (6.3-8.2) g/dL Albumin 3.9 (3.5-5.0) g/dL Globulin 2.8 (1.7-4.1) g/dL Albumin/Globulin Ratio 1.4 (1.0-2.8) Point of Care Testing Glucose POC 100 Discharge Plan Departure Patient Disposition: Home Clinical Impression: Near syncope Instructions: DI for Syncope in Adults (Fainting) Activity Restrictions/Additional Instructions: Thank you for coming into the [facility] ED today. Your workup today was very reassuring. The labs showed no evidence of infection, electrolyte abnormality, or heart attack. The EKG was also very reassuring. The head CT showed no evidence of any kind of intrcranial bleeding. I suspect w/ rest and plenty of fluids you should be feeling much better soon. Prescriptions: No Action finasteride 5 mg tablet 5 mg PO DAILY Qty: 90 3RF tamsulosin 0.4 mg capsule 0.8 mg PO DAILY Qty: 180 1RF Rx Instructions: TAKE WITH FINASTERIDE 5MG simvastatin 20 mg tablet See Rx Instructions .ROUTE .COMPLEX Qty: 90 1RF Dose Instruction: TAKE 1 TABLET AT BEDTIME Rx Instructions: TAKE 1 TABLET AT BEDTIME lisinopril 10 mg tablet See Rx Instructions .ROUTE .COMPLEX Qty: 90 1RF Dose Instruction: TAKE 1 TABLET DAILY Rx Instructions: TAKE 1 TABLET DAILY gabapentin 100 mg capsule 400 mg PO TID Qty: 240 0RF Rx Instructions: Titrate upward as instructed, max dose is 1200mg in 24 hours for now. Referrals: Marco Antonio aKiser DO [Primary Care Provider] - Stand Alone Forms: Patient Portal/API ED Sign-out <Beatriz Fields MD - Last Filed: 12/29/22 17:55> Cosign ED Attending Cosignature Attestation: I did not see this patient. I was available all times for consultation.
--- NOTE | 2022-12-29 16:40 | DI.RAD.S_ITS ---
PROCEDURE: XR CHEST 2V INDICATIONS: CP TECHNIQUE: 2 views of the chest were acquired. COMPARISON: [facility], CR, XR CHEST 1V, 06/21/2020, 10:53. FINDINGS: Surgical changes and devices: None. Lungs and pleura: Lungs are clear. No pleural effusions or pneumothorax. Mediastinum: Mediastinal contours are normal. Heart size is normal. Bones and chest wall: No suspicious bony abnormalities. Soft tissues appear unremarkable. IMPRESSION: No acute cardiopulmonary abnormality is seen. Approved by: Levon Brown M.D. on 12/29/2022 at 17:28
--- NOTE | 2022-12-29 16:42 | DI.CT.S_ITS ---
PROCEDURE: CT HEAD/BRAIN WO CON INDICATIONS: Near syncope TECHNIQUE: Noncontrast 4.5 mm thick angled axial sections acquired from the foramen magnum to the vertex, with coronal and sagittal reformats. For radiation dose reduction, the following was used: automated exposure control, adjustment of mA and/or kV according to patient size. COMPARISON: None. FINDINGS: Image quality: Excellent. CSF spaces: Basal cisterns are patent. No extra-axial fluid collections. Ventricles are normal in size and shape. Brain: No midline shift. No intracranial masses or hemorrhage. Rothman-white matter interface is normal. Skull and face: Calvarium and visualized facial bones are intact, without suspicious lesions. Sinuses: Visualized sinuses and mastoids are clear. IMPRESSION: No acute intracranial abnormality. Approved by: Levon Brown M.D. on 12/29/2022 at 17:28
[2022-12-29 16:49] VITALS: PULSE 81; RESP 23; O2SAT 94
[2022-12-29 16:53] VITALS: BP 136/66; PULSE 82; RESP 16; TEMP 36.8; O2SAT 95; BMI 32.5
--- NOTE | 2022-12-29 17:00 | PC.NURSE ---
Pt denied having chest pain shortly after being settled in the room. At triage pt had chest pain which is relieved by burping. Pt states 0/10 pain while laying in bed. He complains of left shoulder pain and chronic back pain along with feeling faint 3x earlier today. Now in bed patient denies dizziness or lightheaded, but states he just wants to sleep.
[2022-12-29 17:15] VITALS: PULSE 81; RESP 33; O2SAT 95
[2022-12-29 17:20] LABS: Add Manual Diff / Slide Review NO; Alanine Aminotransferase 22 IU/L (<50); Albumin 3.9 g/dL (3.5-5.0); Albumin Globulin Ratio 1.4 (1.0-2.8); Alkaline Phosphatase 52 U/L (38-126); Aspartate Aminotransferase 20 IU/L (17-59); Basophils Absolute Auto 0 /uL (0-100); Basophils Percent Auto 0.3 % (0-2); Blood Urea Nitrogen 15 mg/dL (9-20); Calcium 9.1 mg/dL (8.4-10.2); Carbon Dioxide 26 mmol/L (22-32); Chloride 104 mmol/L (98-107); Creatine Kinase 50 U/L (55-170); D Dimer 424 ng/ml (<500); Eosinophils Absolute Auto 100 /uL (0-450); Eosinophils Percent Auto 0.8 % (2-4); Estimated Glomerular Filt Rate > 60 mL/min (>60); Globulin 2.8 g/dL (1.7-4.1); Glucose 90 mg/dL (80-110); HEMOLYSIS < 15 (0-50); Hematocrit 45.3 % (41-53); Hemoglobin 15.8 g/dL (13.5-17.5); Lymphocytes Absolute Auto 1500 /uL (1100-4500); Lymphocytes Percent Auto 19.1 % (25-40); Mean Corpuscular HGB Conc 34.8 % (30-36); Mean Corpuscular Hemoglobin 31.2 PG (26-34); Mean Corpuscular Volume 89.8 fL (80-100); Monocytes Absolute Auto 700 /uL (0-900); Monocytes Percent Auto 8.5 % (3-14); Neutrophils Absolute Auto 5600 /uL (1500-7000); Neutrophils Percent Auto 71.3 % (50-75); Platelet Count 218 X10^3/uL (150-400); Potassium 3.6 mmol/L (3.4-5.1); Red Blood Cell Count 5.05 X10^6/uL (4.5-5.9); Red Cell Distribution Width 12.8 % (11.6-14.8); Sodium 138 mmol/L (137-145); Total Protein 6.7 g/dL (6.3-8.2); White Blood Cell Count 7.9 X10^3/uL (4.5-11.0)
[2022-12-29 17:30] VITALS: PULSE 80; RESP 29; O2SAT 93
[2022-12-29 17:31] LABS: Troponin I < 0.012 ng/mL (0.01-0.034)
[2022-12-29 17:45] VITALS: BP 117/57; PULSE 78; RESP 28; O2SAT 93
== END 2022-12-29 18:03 | disposition home or self-care (01) ==
PROVIDERS: Emergency Provider Physician Assistant Medical; PCP Family Medicine
DX: R55 Syncope and collapse (principal); R07.9 Chest pain, unspecified; Z79.899 Other long term (current) drug therapy
CPT/HCPCS: 36415; 70450; 71046; 80053; 82550; 82962; 84484; 85025; 85379; 93005; 99283; 99284

== ENCOUNTER → 2023-05-21 15:07 | Outpatient (CLI) | payer MEDICARE, OTHER, SELFPAY ==
[2022-05-11 14:06] VITALS: BMI 32.0
[2023-05-21 17:02] LABS: Prostate Specific Antigen 1.02 ng/mL (0.10-4.00)
== END ==
PROVIDERS: PCP Family Medicine; Referring Provider Specialist; Visit Provider Specialist
DX: N40.1 Benign prostatic hyperplasia with lower urinary tract symptoms (principal); N50.89 Other specified disorders of the male genital organs; N13.8 Other obstructive and reflux uropathy
CPT/HCPCS: 36415; 84153

== ENCOUNTER → 2023-12-06 14:41 | Outpatient (CLI) | payer MEDICARE, OTHER, SELFPAY ==
[2022-05-11 14:06] VITALS: BMI 32.0
[2023-12-06 15:28] LABS: Add Manual Diff / Slide Review NO; Basophils Absolute Auto 100 /uL (0-100); Basophils Percent Auto 0.7 % (0-2); Eosinophils Absolute Auto 100 /uL (0-450); Eosinophils Percent Auto 0.9 % (2-4); Hematocrit 46.8 % (41-53); Hemoglobin 16.4 g/dL (13.5-17.5); Lymphocytes Absolute Auto 1800 /uL (1100-4500); Lymphocytes Percent Auto 23.8 % (25-40); Mean Corpuscular Hemoglobin 31.7 PG (26-34); Mean Corpuscular Volume 90.5 fL (80-100); Monocytes Absolute Auto 800 /uL (0-900); Monocytes Percent Auto 9.7 % (3-14); Neutrophils Absolute Auto 5000 /uL (1500-7000); Neutrophils Percent Auto 64.9 % (50-75); Platelet Count 220 X10^3/uL (150-400); Red Blood Cell Count 5.17 X10^6/uL (4.5-5.9); Red Cell Distribution Width 12.4 % (11.6-14.8); White Blood Cell Count 7.7 X10^3/uL (4.5-11.0)
[2023-12-06 15:45] LABS: Alanine Aminotransferase 26 IU/L (<50); Albumin 4.4 g/dL (3.5-5.0); Albumin Globulin Ratio 1.5 (1.0-2.8); Alkaline Phosphatase 60 U/L (38-126); Aspartate Aminotransferase 27 IU/L (17-59); BUN Creatinine Ratio 16.5 (6-22); Bilirubin Total 1.3 mg/dL (0.2-1.3); Blood Urea Nitrogen 16 mg/dL (9-20); Calcium 8.9 mg/dL (8.4-10.2); Carbon Dioxide 24 mmol/L (22-32); Chloride 105 mmol/L (98-107); Cholesterol 162 mg/dL (140-199); Estimated Glomerular Filt Rate > 60 mL/min (>60); Globulin 2.9 g/dL (1.7-4.1); Glucose 103 mg/dL (80-110); HDL Cholesterol 38 mg/dL (40-60); HEMOLYSIS < 15 (0-50); LDL Cholesterol Calculated 103 mg/dL (<100); Potassium 3.9 mmol/L (3.4-5.1); Sodium 138 mmol/L (137-145); Total Protein 7.3 g/dL (6.3-8.2); Triglycerides 104 mg/dL (35-150)
== END ==
PROVIDERS: PCP Family Medicine; Referring Provider Family Medicine; Visit Provider Family Medicine
DX: E78.5 Hyperlipidemia, unspecified (principal); I10 Essential (primary) hypertension
CPT/HCPCS: 36415; 80053; 80061; 85025

== ENCOUNTER 2023-12-31 16:58 | Emergency (ER) | payer MEDICARE, OTHER, SELFPAY ==
[2022-05-11 14:06] VITALS: BMI 32.0
[2023-12-31] VITALS (9 sets, daily range): BP systolic 120–139; BP diastolic 68–75; PULSE 69–83; RESP 15–22; TEMP 36.7; O2SAT 93–100; BMI 33.2
--- NOTE | 2023-12-31 17:10 | DI.RAD.S_ITS ---
PROCEDURE: XR CHEST 1V INDICATIONS: chest pain TECHNIQUE: One view of the chest was acquired. COMPARISON: Merged With [facility], CR, XR CHEST 2V, 12/29/2022, 16:52. Merged With [facility], CR, XR CHEST 1V, 06/21/2020, 10:53. FINDINGS: Surgical changes and devices: None. Lungs and pleura: Lungs are clear. No pleural effusions or pneumothorax. Mediastinum: Mediastinal contours appear normal. Heart size is normal. Bones and chest wall: No suspicious bony lesions. Overlying soft tissues appear unremarkable. IMPRESSION: No acute cardiothoracic process. Dictated by: Schuyler Driver M.D. on 12/31/2023 at 18:00 Approved by: Schuyler Driver M.D. on 12/31/2023 at 18:01
--- NOTE | 2023-12-31 17:13 | EKG_ITS ---
[address] [address] Test Date: 2023-12-31 Pat Name: Oscar Maloney Department: [facility] Room: Gender: Male Editorial Intern: DWIGHT : 1955 Requested By: Order Number: [id number] Reading MD: Paolo Awan MD Measurements Intervals [place] Rate: 78 P: 8 NM: 156 QRS: -14 QRSD: 90 T: 11 QT: 392 QTc: 446 Interpretive Statements Normal sinus rhythm Electronically Signed On 01-01-2024 7:20:34 PST by Paolo Awan MD
[2023-12-31 17:28] LABS: Add Manual Diff / Slide Review NO; Basophils Absolute Auto 0 /uL (0-100); Basophils Percent Auto 0.5 % (0-2); Eosinophils Absolute Auto 200 /uL (0-450); Eosinophils Percent Auto 2.5 % (2-4); Hematocrit 46.1 % (41-53); Hemoglobin 16.1 g/dL (13.5-17.5); Lymphocytes Absolute Auto 1900 /uL (1100-4500); Lymphocytes Percent Auto 29.2 % (25-40); Mean Corpuscular HGB Conc 34.9 % (30-36); Mean Corpuscular Hemoglobin 31.6 PG (26-34); Mean Corpuscular Volume 90.7 fL (80-100); Monocytes Absolute Auto 600 /uL (0-900); Monocytes Percent Auto 9.6 % (3-14); Neutrophils Absolute Auto 3900 /uL (1500-7000); Neutrophils Percent Auto 58.2 % (50-75); Platelet Count 205 X10^3/uL (150-400); Red Blood Cell Count 5.08 X10^6/uL (4.5-5.9); Red Cell Distribution Width 12.8 % (11.6-14.8); White Blood Cell Count 6.6 X10^3/uL (4.5-11.0)
--- NOTE | 2023-12-31 17:30 | PC.NURSE ---
Pt reports chest pain that radiates up his neck and down his left arm and began on after he woke up. Pt denies SOB and denies nausea. Reports body aches and nasal congestion. Encouraged to call if any change in pain or new symptoms. Call light within reach. at bedside.
[2023-12-31 17:37] LABS: PTT Partial Thromboplastin Tim 36 SECONDS (25.1-36.5)
[2023-12-31 17:40] LABS: Alanine Aminotransferase 23 IU/L (<50); Albumin 3.9 g/dL (3.5-5.0); Albumin Globulin Ratio 1.2 (1.0-2.8); Alkaline Phosphatase 70 U/L (38-126); Aspartate Aminotransferase 23 IU/L (17-59); Bilirubin Total 0.6 mg/dL (0.2-1.3); Blood Urea Nitrogen 15 mg/dL (9-20); Calcium 8.9 mg/dL (8.4-10.2); Carbon Dioxide 24 mmol/L (22-32); Chloride 106 mmol/L (98-107); Creatine Kinase 65 U/L (55-170); Estimated Glomerular Filt Rate > 60 mL/min (>60); Globulin 3.2 g/dL (1.7-4.1); Glucose 103 mg/dL (80-110); HEMOLYSIS < 15 (0-50); Lipase 75 U/L (23-300); Magnesium 1.9 mg/dL (1.6-2.3); Potassium 3.9 mmol/L (3.4-5.1); Sodium 136 mmol/L (137-145); Total Protein 7.1 g/dL (6.3-8.2)
[2023-12-31 17:51] LABS: NT-proBNP (BNP-Adult 18+) 55 pg/mL (<125); Troponin I < 0.012 ng/mL (0.01-0.034)
--- NOTE | 2023-12-31 18:31 | ED.CHESTPAIN ---
HPI - Chest Pain General Chief Complaint: Chest Pain Stated Complaint: neck, head and chest px, dizziness Time Seen by Provider: 12/31/23 18:31 Source: patient Mode of arrival: Ambulatory Limitations: no limitations History of Present Illness HPI narrative: Patient is a 68-year-old male with a history of hypertension, hyperlipidemia, cervical radiculopathy, presents to the emergency department from home for evaluation of epigastric pain, describes as burning in sensation worse after he eats. States that he has had history of this in the past did take some anti acid reflux with relief but has not been doing so recently. He states that he is also having a flare-up of his chronic/known cervical radiculopathy, he states that this is associated whenever his epigastric pain goes up. He denies any trauma or falls denies any numbness weakness tingling to upper extremities denies any visual disturbances at time of evaluation patient Neuro vascularly intact NIH of 0. Patient did have stress test done proximally 1 year ago which was normal. Related Data Previous Rx's Medication Instructions Recorded tamsulosin 0.4 mg capsule 0.8 mg (2 x 0.4 mg) PO DAILY #180 10/29/23 caps simvastatin 20 mg tablet 20 mg PO ONCE PM #90 tabs 11/19/23 lisinopril 10 mg tablet See Rx Instructions .Route 11/29/23 .COMPLEX #90 tabs dutasteride 0.5 mg capsule 0.5 mg PO DAILY #90 caps 12/28/23 famotidine 20 mg tablet (Pepcid) 20 mg PO DAILY 30 days #30 tabs 12/31/23 Allergies Allergy/AdvReac Type Severity Reaction Status Date / Time aspirin [ASPIRIN] Allergy Unknown Hives Verified 12/14/23 08:41 Review of Systems Review of Systems Narrative: General: Denies fever, chills, weight loss HEENT: Denies headache, eye drainage, eye irritation, head trauma, sore throat, voice change Cardiovascular: Denies any chest pain, palpitations, shortness of breath, tachycardia Respiratory: Denies any shortness of breath, cough, wheeze, stridor GI/: Positive epigastric abdominal pain, denies nausea, vomiting, diarrhea, bright red blood per rectum, melanotic stools, urinary frequency, urinary retention, dysuria, hematuria MSK: Denies any joint pain, muscle pains, swelling Skin: Denies any rashes, lesions, discoloration Neuro: Denies any headache, lightheadedness, dizziness, fainting, weakness Psych: Denies SI/HI Patient History Medical History (Updated 12/31/23 @ 18:48 by Lauro Loco DO) Bilateral hydrocele Epididymal cyst BPH w urinary obs/LUTS Thoracic degenerative disc disease Cervical radiculopathy Elevated fasting glucose Constipation Welcome to Medicare preventive visit Lower urinary tract symptoms (LUTS) Atypical chest pain Gastroesophageal reflux disease Seasonal allergic rhinitis Perineal rash in male Urinary urgency Chronic left-sided thoracic back pain Herniated nucleus pulposus, lumbar Cervical spondylosis without myelopathy (~2012) Chronic headaches 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 Degenerative disc disease Hyperlipidemia HTN (hypertension) Surgical History History of laparoscopy History of Myla fundoplication History of hernia repair (2005) History of cholecystectomy (2002) History of Myla fundoplication (1999) History of cardiac catheterization (2005) Family History Father Stroke Hypertension Diabetes mellitus Mother Cancer Hypertension Diabetes mellitus Family/Other Cancer Social History marital status: number of children: 2 household members: spouse Smoking Status: Former smoker Tobacco: How many years used: 5 alcohol intake: never substance use type: does not use Type(s) of exercise: walking frequency: daily Smoking Status: Former smoker tobacco type: smokeless tobacco alcohol intake frequency: holidays/special occasions only Substance Use Type: does not use Exam Narrative Exam Narrative: General: Cooperative, comfortable, well-developed, not in acute distress HEENT: Normocephalic, atraumatic, PERRLA, normal sclera, eyelids normal, Neck: Active full range of motion, atraumatic Chest: Normal to inspection, negative crepitus, no overlying erythema ecchymosis Respiratory: Normal respiratory effort, not in acute respiratory distress, clear to auscultation bilaterally negative cough, wheeze, tachypnea, rhonchi, rales Cardiology: Regular rate rhythm negative gallop, murmur, rubs GI/: Normal to inspection, soft, nonrigid, no tenderness to palpation, exam deferred MSK: Full range of active range of motion of all 4 extremities, atraumatic Skin: No rashes lesions noted Neuro: Alert awake oriented x3, moves all 4 extremities spontaneously, cranial nerves intact, able to answer all questions appropriately follows commands appropriately Psych: Cooperative, negative suicidal or homicidal ideations Initial Vital Signs Initial Vital Signs: Vital Signs Pulse Oximetry 97 12/31/23 17:07 Course Orders Ordered: ED Orders 12/31/23 17:10 XR chest 1V Stat EKG-12 Lead Stat 12/31/23 17:19 Complete Blood Count AUTO DIFF Stat Comprehensive Metabolic Panel Stat Lipase Stat Magnesium Stat NT-proBNP (BNP-Adult 18+) Stat PTT Partial Thromboplastin Jaren Stat Prothrombin Time INR Stat Troponin & CK Cardiac Panel Stat Vital Signs Vital signs: Vital Signs - 8 hr 12/31/23 17:07 12/31/23 17:09 12/31/23 17:09 Temperature Pulse Rate 83 Respiratory Rate Blood Pressure 139/74 Pulse Oximetry 97 97 Oxygen Delivery Method 12/31/23 17:12 12/31/23 17:26 12/31/23 17:26 Temperature 98.0 F Pulse Rate 77 74 Respiratory Rate 18 22 Blood Pressure 139/74 137/72 Pulse Oximetry 100 93 Oxygen Delivery Method Room Air 12/31/23 17:30 12/31/23 17:30 12/31/23 18:00 Temperature Pulse Rate 74 75 Respiratory Rate 21 21 Blood Pressure 120/68 Pulse Oximetry 94 94 Oxygen Delivery Method Room Air 12/31/23 18:01 12/31/23 18:01 Temperature Pulse Rate 74 Respiratory Rate 15 Blood Pressure 126/70 Pulse Oximetry 96 Oxygen Delivery Method Room Air MDM - Chest Pain Differential Diagnosis Differential diagnosis: Likely atypical chest pain, st elevation myocardial infarction, chest pain and other (Electrolyte abnormality, GERD, cervical radiculopathy) Lab Data 12/31/23 17:19 12/31/23 17:19 Labs: Lab Results 12/31/23 Range/Units 17:19 WBC 6.6 (4.5-11.0) X10^3/uL RBC 5.08 (4.5-5.9) X10^6/uL Hgb 16.1 (13.5-17.5) g/dL Hct 46.1 (41-53) % MCV 90.7 (80-100) fL MCH 31.6 (26-34) PG MCHC 34.9 (30-36) % RDW 12.8 (11.6-14.8) % Plt Count 205 (150-400) X10^3/uL Neut % (Auto) 58.2 (50-75) % Lymph % (Auto) 29.2 (25-40) % Boyle % (Auto) 9.6 (3-14) % Eos % (Auto) 2.5 (2-4) % Baso % (Auto) 0.5 (0-2) % Neut # (Auto) 3900 (6215-3852) /uL Lymph # (Auto) 1900 (4707-1500) /uL Boyle # (Auto) 600 (0-900) /uL Eos # (Auto) 200 (0-450) /uL Baso # (Auto) 0 (0-100) /uL PT 11.0 (9.4-12.5) SECONDS INR 1.0 (0.9-1.3) APTT 36 (25.1-36.5) SECONDS Sodium 136 L (137-145) mmol/L Potassium 3.9 (3.4-5.1) mmol/L Chloride 106 (98-107) mmol/L Carbon Dioxide 24 (22-32) mmol/L BUN 15 (9-20) mg/dL Creatinine 0.88 (0.66-1.25) mg/dL Estimated GFR > 60 (>60) mL/min BUN/Creatinine Ratio 17.0 (6-22) Glucose 103 (80-110) mg/dL Calcium 8.9 (8.4-10.2) mg/dL Magnesium 1.9 (1.6-2.3) mg/dL Total Bilirubin 0.6 (0.2-1.3) mg/dL AST 23 (17-59) IU/L ALT 23 (<50) IU/L Alkaline Phosphatase 70 (38-126) U/L Total Creatine Kinase 65 (55-170) U/L Troponin I < 0.012 (0.01-0.034) ng/mL NT-Pro-B Natriuret Pep 55 (<125) pg/mL Total Protein 7.1 (6.3-8.2) g/dL Albumin 3.9 (3.5-5.0) g/dL Globulin 3.2 (1.7-4.1) g/dL Albumin/Globulin Ratio 1.2 (1.0-2.8) Lipase 75 (23-300) U/L Imaging Data Chest x-ray: Radiologist's Impression: [address] [address] XRay Report Signed Patient: Oscar Maloney MR#: [id number] : 1955 Acct:[id number] Age/Sex: 68 / M Date of Service: 12/31/23 Loc: ED Accession Number: [id number] Procedure: XR chest 1V Ordering Provider: Saundra Azar MD PROCEDURE: XR CHEST 1V INDICATIONS: chest pain TECHNIQUE: One view of the chest was acquired. COMPARISON: [facility], CR, XR CHEST 2V, 12/29/2022, 16:52. [facility], CR, XR CHEST 1V, 06/21/2020, 10:53. FINDINGS: Surgical changes and devices: None. Lungs and pleura: Lungs are clear. No pleural effusions or pneumothorax. Mediastinum: Mediastinal contours appear normal. Heart size is normal. Bones and chest wall: No suspicious bony lesions. Overlying soft tissues appear unremarkable. IMPRESSION: No acute cardiothoracic process. ECG Data Interpretation: EKG interpreted ED physician, sinuses 78 beats per minute, QTC 446, normal axis, nonspecific ST changes, no STEMI MDM Narrative Medical decision making narrative: Patient is a 68-year-old male with a history of hypertension hyperlipidemia, comes into the ED from home for evaluation of epigastric pain, describes as burning in sensation worse after he eats. States that he has had history of this in the past did take some anti acid reflux with relief but has not been doing so recently. He states that he is also having a flare-up of his chronic/known cervical radiculopathy, he states that this is associated whenever his epigastric pain goes up. He denies any trauma or falls denies any numbness weakness tingling to upper extremities denies any visual disturbances at time of evaluation patient Neuro vascularly intact NIH of 0. Patient did have stress test done proximally 1 year ago which was normal. Patient's lab work unremarkable, troponin negative, EKG nonischemic chest x-ray unremarkable. Patient's symptoms more consistent with acid reflux, I will give him medication here for this send him home on Pepcid, informed him to follow up with GI PCP and cardiology outpatient setting. Patient verbalized understanding of this and agrees to being discharged home with outpatient follow up Discharge Plan Departure Patient Disposition: Home Clinical Impression: GERD (gastroesophageal reflux disease) Activity Restrictions/Additional Instructions: Please follow up with primary care, GI and Cardiology Please read the discharge instructions sheet carefully and bring all papers to all doctor follow-up visits, as it may contain information that your doctor may want to see. Disease processes change and evolve, if your symptoms worsen or if you develop any new symptoms that are concerning to you please return for evaluation. Your evaluation today does not show any evidence of any life-threatening/serious illnesses requiring admission to the hospital or surgery. Please follow-up with your doctor for re-evaluation in approximately 1 day. Seek immediate medical attention for any worrisome symptoms. Prescriptions: New famotidine [Pepcid] 20 mg tablet 20 mg PO DAILY 30 Days Qty: 30 0RF No Action tamsulosin 0.4 mg capsule 0.8 mg PO DAILY Qty: 180 1RF Rx Instructions: TAKE WITH FINASTERIDE 5MG simvastatin 20 mg tablet 20 mg PO ONCE PM Qty: 90 3RF lisinopril 10 mg tablet See Rx Instructions .ROUTE .COMPLEX Qty: 90 1RF Dose Instruction: TAKE 1 TABLET DAILY Rx Instructions: TAKE 1 TABLET DAILY dutasteride 0.5 mg capsule 0.5 mg PO DAILY Qty: 90 3RF Referrals: Marco Antonio Kaiser DO [Primary Care Provider] - Stand Alone Forms: Patient Portal/API/Survey
[2023-12-31] MEDS: FAMOTIDINE 20 MG/2 ML VIAL IV (18:53)
[2023-12-31] MEDS: MAG HYDROX/ALUM/SIMETH 30 ML UDC PO (18:53)
== END 2023-12-31 19:24 | disposition home or self-care (01) ==
PROVIDERS: Emergency Medicine; Emergency Provider Student in an Organized Health Care Education/Training Program; PCP Family Medicine
DX: K21.9 Gastro-esophageal reflux disease without esophagitis (principal); R07.9 Chest pain, unspecified
CPT/HCPCS: 36415; 71045; 80053; 82550; 83690; 83735; 83880; 84484; 85025; 85610; 85730; 93005; 93010; 96374; 99284

== ENCOUNTER → 2024-02-06 10:44 | Outpatient (CLI) | payer MEDICARE, OTHER, SELFPAY ==
[2024-01-04 08:47] VITALS: BMI 32.0
--- NOTE | 2024-02-06 10:45 | DI.RAD.S_ITS ---
PROCEDURE: FL BARIUM SWALLOW INDICATIONS: heartburn COMPARISON: None. FINDINGS: Function: There is abnormal esophageal peristalsis with tertiary contractions and slightly delayed emptying. [id number] elicited gastroesophageal reflux. There is normal transit of a calibrated barium tablet through the esophagus into the stomach. Morphology: Air-contrast images demonstrate normal mucosal morphology. Single contrast views show no esophageal strictures, extrinsic mass effects, or diverticula. Limited images of the stomach demonstrate normal appearance. IMPRESSION: 1. [id number] gastroesophageal reflux. 2. Intermittent tertiary contractions and delayed esophageal emptying. Dictated by: Maverick Durbin M.D. on 02/06/2024 at 14:47 Approved by: Maverick Durbin M.D. on 02/06/2024 at 14:48
== END ==
LOC: RAD 10:45
PROVIDERS: PCP Family Medicine; Referring Provider Radiology Diagnostic Radiology; Visit Provider Radiology Diagnostic Radiology
DX: K21.9 Gastro-esophageal reflux disease without esophagitis (principal); R12 Heartburn
CPT/HCPCS: 74220

== ENCOUNTER 2024-03-20 12:43 | Day surgery (SDC) | payer MEDICARE, OTHER, SELFPAY ==
[2024-01-04 08:47] VITALS: BMI 32.0
--- NOTE | 2024-03-20 | PATH_ITS ---
[facility] Accession Number: [id number] No. of containers..02 Tissue . 01 Material submitted: . PART A: gastrointestinal site - ANTRUM PART B: esophagus, E-G Junction - GE JUNCTION . 01 Diagnosis: Part A: ANTRUM: Gastric mucosa with minimal chronic inflammation. No Helicobacter organisms identified on H/E stain. No intestinal metaplasia, dysplasia, or malignancy identified. . Part B: GE JUNCTION: Gastroesophageal junction mucosa with mild chronic inflammation. No goblet cell metaplasia, dysplasia, or malignancy identified. [facility] 03/24/2024 1514 Local . 01 Electronically signed: . Maverick Bland MD, Pathologist NPI- [id number] . 01 Gross description: . A. Received in formalin with two patient identifiers and 1. Antrum biopsy, are two landa soft tissue fragments both measuring 0.4 cm in greatest dimension, submitted in A1. . B. Received in formalin with two patient identifiers and 2. GE junction biopsy, are three landa soft tissue fragments, 0.3-0.5 cm in greatest dimension, submitted in B1. ([id number]) /MRV 03/24/2024 1514 Local . 01 Pathologist provided ICD-10: K20.90, K29.30 . 01 CPT . 654791, 311627 Specimen Comment: A courtesy copy of this report has been sent to [phone] Performed at: [address] [id number] MD Maverick Bland MD Phone: [phone]
[2024-03-20 13:15] VITALS: BP 154/69; PULSE 69; RESP 16; TEMP 36.6; O2SAT 97
--- NOTE | 2024-03-20 13:47 | PM.HP.IH.1 ---
History of Present Illness History of Present Illness Date Patient Seen: 03/20/24 Time Patient Seen: 13:47 Chief complaint: EGD w/poss bx Narrative: Mariano is a 68-year-old man with reflux. See the prior office note for details. He did have a barium swallow recently that showed evidence of reflux and ?delayed esophageal emptying?. 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 Degenerative disc disease Hyperlipidemia HTN (hypertension) Surgical History History of laparoscopy History of Myla fundoplication History of hernia repair (2005) History of cholecystectomy (2002) History of Myla fundoplication (1999) History of cardiac catheterization (2005) Family History Father Stroke Hypertension Diabetes mellitus Mother Cancer Hypertension Diabetes mellitus Family/Other Cancer Social History marital status: number of children: 2 household members: spouse Smoking Status: Former smoker Tobacco: How many years used: 5 alcohol intake: never substance use type: does not use Type(s) of exercise: walking frequency: daily Meds Home Medications and Allergies Home Medications Medication Instructions Recorded Confirmed Type tamsulosin 0.4 mg capsule 0.8 mg (2 x 0.4 mg) PO DAILY #180 10/29/23 01/30/24 Rx caps simvastatin 20 mg tablet 20 mg PO ONCE PM #90 tabs 11/19/23 01/30/24 Rx dutasteride 0.5 mg capsule 0.5 mg PO DAILY #90 caps 12/28/23 01/30/24 Rx omeprazole 20 mg capsule,delayed 20 mg PO BID #60 caps 02/06/24 Rx release lisinopril 10 mg tablet See Rx Instructions .Route 02/11/24 Rx .COMPLEX #90 tabs Allergies Allergy/AdvReac Type Severity Reaction Status Date / Time aspirin [ASPIRIN] Allergy Unknown Hives Verified 01/30/24 10:21 Exam Vital Signs (past 8 hours): - 03/20/24 13:15 Temperature 97.9 F Pulse Rate 69 Respiratory Rate 16 Blood Pressure 154/69 H Pulse Oximetry 97 Oxygen Delivery Method Room Air Oxygen Delivery Method Room Air Const General: No acute distress Resp Effort & Inspection: normal respiratory effort Assessment & Plan Assessment and plan (1) Heartburn: Status: Acute Plan EGD Time-Based Coding :: [TOTAL MINUTES] spent with patient and on the chart (including review of chart, obtaining history, exam, reviewing outside data, placing orders, documenting exam and treatment plan, and counseling patient) on [DATE]. [employer] Document charge(s): No
--- NOTE | 2024-03-20 14:47 | P.OP.EGD_ITS ---
Operative Date/Time/Diagnoses Date of procedure: 03/20/24 Time of procedure: 14:47 Pre-op diagnosis: GERD Post-op diagnosis: same Procedure & Clinicians Study performed: Esophagogastroduodenoscopy Same procedure as scheduled: Yes Surgeon: Alan Demarco Procedure Notes Procedure in detail: Surgeon: Alan Demarco MD Anesthesia: Xochilt Jauregui timeout was performed. A bite blocked was placed. The patient was positioned in the left lateral decubitus position. Anesthesia was administered. The endoscope was inserted through the bite block and passed through the esophagus and stomach and into the duodenum. The duodenal mucosa appeared normal. The scope was withdrawn into the duodenal bulb and no abnormalities were seen. The scope was withdrawn into the stomach. Was mild antritis and random biopsies were taken from the antrum with cold forceps. The rest of the stomach was normal. The scope was retroflexed and the Myla fundoplication appeared to be intact. The scope was withdrawn into the esophagus and there were some short tongues of salmon-colored mucosa. Random biopsies were taken from the salmon- colored mucosa with cold forceps.. The remainder of the esophagus was normal. The scope was withdrawn. The patient was awakened and brought to recovery. Sedation time: 8 minutes Findings: Mild antritis, apparently intact Myla fundoplication and 1-2 short segments of salmon-colored mucosa at the GE Post-procedure Disposition: PACU
[2024-03-20 14:54] VITALS: BP 122/86; PULSE 92; RESP 16; TEMP 36.2; O2SAT 96
[2024-03-20 14:59] VITALS: BP 134/87; PULSE 89; RESP 18; O2SAT 98
[2024-03-20 15:04] VITALS: BP 117/84; PULSE 87; RESP 12; TEMP 36.6; O2SAT 95
[2024-03-20 15:08] VITALS: BP 126/69; PULSE 92; RESP 20; O2SAT 94
== END 2024-03-20 15:31 | disposition home or self-care (01) ==
PROVIDERS: PCP Family Medicine; Referring Provider Surgery; Visit Provider Surgery
PROC: 0DJ08ZZ Inspection of Upper Intestinal Tract, Via Natural or Artificial Opening Endoscopic (ICD-10-PCS; CPT 43239; principal; 2024-03-20 14:00)
DX: K21.9 Gastro-esophageal reflux disease without esophagitis (principal); K29.50 Unspecified chronic gastritis without bleeding; N40.1 Benign prostatic hyperplasia with lower urinary tract symptoms; N13.8 Other obstructive and reflux uropathy; I10 Essential (primary) hypertension; E78.5 Hyperlipidemia, unspecified; Z87.891 Personal history of nicotine dependence
CPT/HCPCS: 43239; J2704

== ENCOUNTER → 2024-05-30 09:49 | Outpatient (CLI) | payer MEDICARE, OTHER, SELFPAY ==
[2024-01-04 08:47] VITALS: BMI 32.0
[2024-05-30 11:48] LABS: Prostate Specific Antigen 0.815 ng/mL (0.10-4.00)
== END ==
PROVIDERS: PCP Family Medicine; Referring Provider Urology; Visit Provider Urology
DX: R97.20 Elevated prostate specific antigen [PSA] (principal)
CPT/HCPCS: 36415; 84153

== ENCOUNTER → 2024-12-10 09:53 | Outpatient (CLI) | payer MEDICARE, OTHER, SELFPAY ==
[2024-01-04 08:47] VITALS: BMI 32.0
[2024-12-10 10:26] LABS: Add Manual Diff / Slide Review NO; Hematocrit 48.6 % (41-53); Hemoglobin 16.9 g/dL (13.5-17.5); Lymphocytes Absolute Auto 1500 /uL (1100-4500); Mean Corpuscular HGB Conc 34.9 % (30-36); Mean Corpuscular Hemoglobin 31.5 PG (26-34); Mean Corpuscular Volume 90.3 fL (80-100); Platelet Count 226 X10^3/uL (150-400)
[2024-12-10 10:45] LABS: Alanine Aminotransferase 23 IU/L (<50); Albumin 4.3 g/dL (3.5-5.0); Albumin Globulin Ratio 1.4 (1.0-2.8); Alkaline Phosphatase 66 U/L (38-126); Blood Urea Nitrogen 15 mg/dL (9-20); Calcium 9.1 mg/dL (8.4-10.2); Carbon Dioxide 22 mmol/L (22-32); Chloride 105 mmol/L (98-107); Cholesterol 166 mg/dL (140-199); Estimated Glomerular Filt Rate > 60 mL/min (>60); Globulin 3.0 g/dL (1.7-4.1); Glucose 98 mg/dL (70-99); HDL Cholesterol 54 mg/dL (40-60); HEMOLYSIS 24 (0-50); Potassium 4.0 mmol/L (3.4-5.1); Sodium 138 mmol/L (137-145); Total Protein 7.3 g/dL (6.3-8.2); Triglycerides 115 mg/dL (35-150)
[2024-12-10 11:14] LABS: Prostate Specific Antigen 2.84 ng/mL (0.10-4.00)
== END ==
LOC: LAB 09:54
PROVIDERS: Urology; PCP Family Medicine; Referring Provider Family Medicine; Visit Provider Family Medicine
DX: N40.1 Benign prostatic hyperplasia with lower urinary tract symptoms (principal); N13.8 Other obstructive and reflux uropathy; E78.5 Hyperlipidemia, unspecified; Z12.5 Encounter for screening for malignant neoplasm of prostate; R73.01 Impaired fasting glucose; I10 Essential (primary) hypertension
CPT/HCPCS: 36415; 80053; 80061; 84153; 85025